=== PATIENT | female | born 1955 | race African-American/Black ===

== ENCOUNTER 2016-10-09 22:08 | Emergency (ER) | payer MEDICARE, OTHER ==
[~2016-10-09] VITALS: Ht 162.6 cm; Wt 70.0 kg
[~2016-10-09 22:08] MED LIST: AMLO5 PO; ARIC5TAB PO; BENZ1TAB PO; ENAL20TA81 PO; GABA300C3 PO; HALO5 PO; HYDR-3533 PO; HYDR50TA94 PO; OMEP20TA39 PO; PARO40TA PO; PRED20 PO; RISPERDAL IM; TRAZ300T2 PO; ZOCO40TA PO; ZOFR4TAB3 SL
[2016-10-09 22:09] VITALS: BP 152/84; PULSE 95; RESP 16; TEMP 98; O2SAT 96
[2016-10-09] MEDS ORDERED: SIMV40TA PO (22:48)
[2016-10-09] MEDS ORDERED: AMLO5TAB2 PO (22:48)
[2016-10-09] MEDS ORDERED: HALO5TAB PO (22:48)
[2016-10-09] MEDS ORDERED: HYDR-3533 PO (22:48)
[2016-10-09] MEDS ORDERED: PAXI40TA PO (22:48)
[2016-10-09] MEDS ORDERED: ARIC10TA PO (22:48)
[2016-10-09] MEDS ORDERED: GABA300C5 PO (22:48)
[2016-10-09] MEDS ORDERED: TRAZ300T2 PO (22:48)
[2016-10-09] MEDS ORDERED: VASO10TA8 PO (22:48)
[2016-10-09] MEDS ORDERED: KETOROLAC TROMETHAMINE 60 MG/2 ML (IM) VIAL IM ONE (23:30)
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
== END 2016-10-09 23:48 | disposition home or self-care (01) ==
LOC: NEPB 22:08
DX: M54.40 Lumbago with sciatica, unspecified side (principal); G89.29 Other chronic pain; I10 Essential (primary) hypertension; E11.9 Type 2 diabetes mellitus without complications; F17.210 Nicotine dependence, cigarettes, uncomplicated
CPT/HCPCS: 96372; 99283; J1885

== ENCOUNTER 2017-05-23 18:57 | Inpatient (IN) | payer MEDICARE, OTHER ==
[~2017-05-23 18:57] MED LIST changes: -AMLO5 PO; +AMLO5TAB2 PO; +ARIC10TA PO; -ARIC5TAB PO; -BENZ1TAB PO; -ENAL20TA81 PO; -GABA300C3 PO; +GABA300C5 PO; -HALO5 PO; +HALO5TAB PO; -HYDR50TA94 PO; -OMEP20TA39 PO; -PARO40TA PO; +PAXI40TA PO; -PRED20 PO; -RISPERDAL IM; +SIMV40TA PO; +VASO10TA8 PO; -ZOCO40TA PO; -ZOFR4TAB3 SL
[2017-05-23 18:58] VITALS: BP 153/84; PULSE 106; RESP 18; TEMP 98.7; O2SAT 96
[2017-05-23] MEDS ORDERED: PAXI30TA7 PO (19:24)
[2017-05-23] MEDS ORDERED: METF500T PO (19:24)
[2017-05-23] MEDS ORDERED: DONE10TA7 PO (19:24)
--- NOTE | 2017-05-23 19:29 | PD ---
HPI Chief Complaint: Fall Time Seen by Provider: 19:18 Travel History International Travel<30 days: No Contact w/Intl Traveler<30days: No Traveled to known affect area: No History of Present Illness HPI 62-year-old female presents emergency Department with complaint of left knee pain after tripping while walking out a door and falling directly on her left knee. She denies hitting her head or loss of consciousness. Anticoagulant therapy. Denies neck pain, back pain, chest pain, shortness of breath, abdominal pain, vomiting. Denies other extremity pain. Denies paresthesias, loss of sensation to the affected extremity. Says she cannot ambulate on the affected extremity at all. Has not taken any medication to try any treatments to alleviate her symptoms. Rates pain 10/10. Describes as throbbing. Pain is constant. PFSH Past Medical History Depression: Yes Cancer: No High Cholesterol: Yes COPD: Yes Coronary Artery Disease: Yes Diabetes: Yes Patient Takes Glucophage: Yes Diminished Hearing: No Glaucoma: No Hepatitis: No Hiatal Hernia: No Hypertension: Yes Medical other: Yes (ARTHRITIS) Musculoskeletal: Yes (RHUMATOID ARTHRITIS) Psychiatric: Yes Immunizations Current: No Thyroid Disease: No Influenza Vaccination: No ?: Not Menopausal: Yes Ectopic : Yes Past Surgical History Abdominal Surgery: No Cardiac Surgery: No Ear Surgery: No Endocrine Surgery: No Eye Surgery: No Genitourinary Surgery: No Gynecologic Surgery: Yes (TUBAL LIG.) Hysterectomy: Yes (PARTIAL) Oral Surgery: No Pacemaker: No Thoracic Surgery: No Other Surgery: Yes (IMPLANTED STIMULATOR) Social History Alcohol Use: Yes (QUIT DRINKING ) Tobacco Use: Yes (1/2 PPD) Substance Use: No Allergies-Medications (Allergen,Severity, Reaction): Coded Allergies: No Known Allergies (Verified , 05/23/17) Reported Meds & Prescriptions Reported Meds & Active Scripts Active Reported Metformin (Metformin HCl) 500 Mg Tab 500 Mg PO BIDPC Paxil (Paroxetine HCl) 30 Mg Tab 60 Mg PO DAILY Donepezil 10 Mg Tab 10 Mg PO HS Simvastatin 40 Mg Tab 40 Mg PO HS Trazodone (Trazodone HCl) 300 Mg Tab 300 Mg PO HS Paxil (Paroxetine HCl) 40 Mg Tab 60 Mg PO DAILY Lortab (Hydrocodone-Acetaminophen) 5-325 Mg Tab 1 Tab PO Q4H PRN Haloperidol 5 Mg Tab 5 Mg PO TID Gabapentin 300 Mg Cap 300 Mg PO BID Vasotec (Enalapril Maleate) 10 Mg Tab 10 Mg PO BID Amlodipine (Amlodipine Besylate) 5 Mg Tab 5 Mg PO DAILY Review of Systems Except as stated in HPI: all other systems reviewed are Neg Physical Exam Narrative GENERAL: Well-nourished, well-developed black female patient, in no acute distress; afebrile, nontoxic-appearing SKIN: Warm and dry. Left knee with abrasion noted; no open wound. HEAD: Atraumatic. Normocephalic. EYES: Pupils equal and round. No scleral icterus. No injection or drainage. ENT: Mucosa pink and moist. Airway patent. NECK: Moving freely. Trachea midline. CARDIOVASCULAR: Regular rate and rhythm. No murmur appreciated. RESPIRATORY: No accessory muscle use. Breath Sounds clear and equal bilaterally. No retractions or tachypnea. GASTROINTESTINAL: Abdomen soft, non-tender, nondistended. Positive bowel sounds. No hepato-splenomegaly, or palpable masses. No guarding. MUSCULOSKELETAL: Left knee edematous, nonerythematous, and without ecchymosis; obvious deformity/fracture noted to the patella; unable to assess range of motion; point tenderness to the patellar aspect. Left Lower extremity is supple and non-tense with 2+ pedal pulse and sensory intact and without erythema or edema. NEUROLOGICAL: Awake and alert. Oriented 3. No obvious cranial nerve deficits. Motor grossly within normal limits. Normal speech. PSYCHIATRIC: Appropriate mood and affect; insight and judgment normal. Data Data Last Documented VS Vital Signs Date Time Temp Pulse Resp B/P (MAP) Pulse Ox O2 Delivery O2 Flow Rate FiO2 05/23/17 18:58 98.7 106 18 153/84 (107) 96 Room Air Orders Orders Knee, Complete (4vws) (05/23/17 19:21) Acetamin-Hydrocod 325-5 Mg ([place] 5-325 (05/23/17 19:30) Ice/Cold Pack (05/23/17 19:22) Basic Metabolic Panel (Bmp) (05/23/17 19:29) Complete Blood Count With Diff (05/23/17 19:29) Prothrombin Time / Inr (Pt) (05/23/17 19:29) Act Partial Throm Time (Ptt) (05/23/17 19:29) Iv Access Insert/Monitor (05/23/17 19:29) Morphine Inj (Morphine Inj) (05/23/17 19:30) Sodium Chloride 0.9% Flush (Ns Flush) (05/23/17 19:30) Electrocardiogram (05/23/17 19:29) Chest, Single Ap (05/23/17 19:29) Morphine Inj (Morphine Inj) (05/23/17 19:45) Labs Laboratory Tests Test 05/23/17 19:50 MDM Medical Decision Making Medical Screen Exam Complete: Yes Emergency Medical Condition: Yes Medical Record Reviewed: Yes Differential Diagnosis Patella fracture, fall, abrasions Narrative Course 62-year-old female with obvious left patellar fracture from mechanical fall. Denies hitting her head or loss of consciousness. Denies neck pain or back pain. IV site obtained. Preoperative orders entered to include CBC, BMP, coags , chest x-ray, EKG. IV site obtained. Morphine ordered. 2100: Dr. Petersen assumed patient care at this time. See her note for final patient disposition. Rose Bates May 23, 2017 19:29
[2017-05-23] MEDS ORDERED: MORPHINE SULFATE 4 MG/ML INJ IV PUSH ONE ×2 (19:30→19:45)
[2017-05-23] MEDS ORDERED: ACETAMINOPHEN/HYDROcodone 325 MG/5 MG TAB PO ONE (19:30)
[2017-05-23] MEDS ORDERED: SODIUM CHLORIDE 0.9% FLUSH 10 ML FLUSH IV FLUSH PRN ×2 (19:30→22:15)
--- NOTE | 2017-05-23 19:59 | PD ---
Physical Exam Narrative I, Dr. Petersen, have reviewed the advance practice practitioner's documentation and am in agreement, met with the patient face to face, made the diagnosis, and the medical decision making was done by me. *My assessment and Findings: Patella fracture vs. dislocation vs. ligament injury 62yo F with PMH of HTN and DM here with left knee pain s/p slip and fell on wet concrete on left knee today. Pt denies any head trauma or LOC. Denies any focal weakness or numbness. No other complaints. Exam is notable for edema and patella appears to be in 2 different places, likely fractured. Very tender to palpation. Distal pulses intact. Sensation intact. There are some abrasions on the knee but no lacerations or any open wounds. Labs reviewed, no leukocytosis. BMP unremarkable. CXR was performed for preop purposes and is negative. Xray left knee showed fractured patella with 3-4cm between the 2 fragments. Left knee immobilized with knee immobilizer. Pt given morphine pain has improved. Consult placed for orthopedic surgeon Dr. Hernandez. Will admit to hospitalist service. Pt is not on any anticoagulations. Will place NPO after midline. Discussed with Dr. Marshall and accepted to her service. Data Data Last Documented VS Vital Signs Date Time Temp Pulse Resp B/P (MAP) Pulse Ox O2 Delivery O2 Flow Rate FiO2 05/23/17 18:58 98.7 106 18 153/84 (107) 96 Room Air Orders Orders Knee, Complete (4vws) (05/23/17 19:21) Acetamin-Hydrocod 325-5 Mg ([place] 5-325 (05/23/17 19:30) Ice/Cold Pack (05/23/17 19:22) Basic Metabolic Panel (Bmp) (05/23/17 19:29) Complete Blood Count With Diff (05/23/17 19:29) Prothrombin Time / Inr (Pt) (05/23/17 19:29) Act Partial Throm Time (Ptt) (05/23/17 19:29) Iv Access Insert/Monitor (05/23/17 19:29) Morphine Inj (Morphine Inj) (05/23/17 19:30) Sodium Chloride 0.9% Flush (Ns Flush) (05/23/17 19:30) Electrocardiogram (05/23/17 19:29) Chest, Single Ap (05/23/17 19:29) Morphine Inj (Morphine Inj) (05/23/17 19:45) Consult Orthopedic (05/23/17 ) Splint Or Brace Apply/Monitor (05/23/17 21:39) Npo After Midnight W/ Po Meds (05/24/17 Breakfast) Type And Screen (05/23/17 21:39) (Hub Use Only)Inp Phy Cons/Ref (05/23/17 ) Admit Order (Ed Use Only) (05/23/17 22:03) Labs Laboratory Tests Test 05/23/17 19:50 White Blood Count 6.7 TH/MM3 Red Blood Count 4.72 MIL/MM3 Hemoglobin 13.6 GM/DL Hematocrit 41.2 % Mean Corpuscular Volume 87.2 FL Mean Corpuscular Hemoglobin 28.8 PG Mean Corpuscular Hemoglobin Concent 33.0 % Red Cell Distribution Width 13.8 % Platelet Count 195 TH/MM3 Mean Platelet Volume 8.8 FL Neutrophils (%) (Auto) 45.1 % Lymphocytes (%) (Auto) 44.6 % Monocytes (%) (Auto) 7.6 % Eosinophils (%) (Auto) 2.3 % Basophils (%) (Auto) 0.4 % Neutrophils # (Auto) 3.0 TH/MM3 Lymphocytes # (Auto) 3.0 TH/MM3 Monocytes # (Auto) 0.5 TH/MM3 Eosinophils # (Auto) 0.2 TH/MM3 Basophils # (Auto) 0.0 TH/MM3 CBC Comment DIFF FINAL Differential Comment Prothrombin Time 10.6 SEC Prothromb Time International Ratio 1.0 RATIO Activated Partial Thromboplast Time 24.2 SEC Blood Urea Nitrogen 10 MG/DL Creatinine 0.73 MG/DL Random Glucose 141 MG/DL Calcium Level 8.4 MG/DL Sodium Level 138 MEQ/L Potassium Level 3.9 MEQ/L Chloride Level 103 MEQ/L Carbon Dioxide Level 27.3 MEQ/L Anion Gap 8 MEQ/L Estimat Glomerular Filtration Rate 98 ML/MIN [facility] Supervised Visit with DIOR: Yes Interpretation(s) EKG: NSR 98bpm. Normal axis. No ST segment elevation or depression. Diagnosis Primary Impression: Fractured patella Qualified Codes: S82.033A - Displaced transverse fracture of unspecified patella, initial encounter for closed fracture Admitting Information Admitting Physician Requests: Admit Janee Petersen DO May 23, 2017 19:59
[2017-05-23 20:59] LABS: BASOPHIL % 0.4 % (0.0-2.0); EOSINOPHIL # 0.2 TH/MM3 (0-0.4); EOSINOPHIL % 2.3 % (0.0-4.0); HEMATOCRIT 41.2 % (35.0-46.0); HEMO FLAGS DIFF FINAL; LYMPH % 44.6 % (9.0-44.0); MEAN CELL VOLUME 87.2 FL (80.0-100.0); MEAN CORPUSCULAR HEMOGLOBIN 28.8 PG (27.0-34.0); MONO % 7.6 % (0.0-8.0); NEUT % 45.1 % (16.0-70.0); PLATELET COUNT 195 TH/MM3 (150-450); RED BLOOD COUNT 4.72 MIL/MM3 (4.00-5.30); RED CELL DISTRIBUTION WIDTH 13.8 % (11.6-17.2); WHITE BLOOD COUNT 6.7 TH/MM3 (4.0-11.0)
[2017-05-23 21:20] LABS: BICARBONATE 27.3 MEQ/L (21.0-32.0); POTASSIUM 3.9 MEQ/L (3.5-5.1)
[2017-05-23 21:27] LABS: APTT (PATIENT) 24.2 SEC (24.3-30.1); PROTHROMBIN TIME - PATIENT 10.6 SEC (9.8-11.6)
--- NOTE | 2017-05-23 21:33 | RADRPT ---
EXAM DATE/TIME: 05/23/2017 19:52 [facility] COMPARISON: KNEE LEFT COMPLETE (4VWS), May 23, 2017, 19:57. INDICATIONS : Evaluate for pneumonia, pneumothorax, and communicable disease. Pre op patella surgery. MEDICAL HISTORY : None. SURGICAL HISTORY : None. ENCOUNTER: Initial ACUITY: 1 day PAIN SCORE: 0/10 LOCATION: Bilateral chest FINDINGS: A single view of the chest demonstrates the lungs to be symmetrically aerated without evidence of mas s, infiltrate or effusion. The cardiomediastinal contours are unremarkable. Osseous structures are intact. A spinal catheter ascending to the mid thoracic region CONCLUSION: No acute disease Luis Alberto Marrero MD on May 23, 2017 at 21:30 Board Certified Radiologist. This report was verified electronically.
--- NOTE | 2017-05-23 21:35 | RADRPT ---
EXAM DATE/TIME: 05/23/2017 19:57 [facility] COMPARISON: No previous studies available for comparison. INDICATIONS : Left knee pain after fall. MEDICAL HISTORY : None. SURGICAL HISTORY : None. ENCOUNTER: Initial ACUITY: 1 day PAIN SCORE: 10/10 LOCATION: Left knee. FINDINGS: The patella is split transversely in its midportion with about 3-4 cm separation of proximal and dist al fragments. There is intervening hematoma. Bony structures are otherwise intact and normally aligne d. CONCLUSION: Fractured patella with dominant proximal and distal fragments significantly distracted as above Luis Alberto Marrero MD on May 23, 2017 at 21:32 Board Certified Radiologist. This report was verified electronically.
[2017-05-23] MEDS: SODIUM CHLOR 0.9% 1000 ML INJ 1,000 ML IV SCH (22:10)
--- NOTE | 2017-05-23 22:12 | HHI.HP ---
[facility] Service [place] Hospitalists Primary Care Physician Case Gordon, Admission Diagnosis Left patella fracture Diagnoses: (1) Fall Diagnosis: Principal (2) Fractured patella Diagnosis: Principal (3) HTN (hypertension) Diagnosis: Principal (4) DM (diabetes mellitus) Diagnosis: Principal (5) COPD (chronic obstructive pulmonary disease) Diagnosis: Principal (6) Tobacco abuse Diagnosis: Principal Travel History International Travel<30 Days: No Contact w/Intl Traveler <30 Da: No Traveled to Known Affected Are: No History of Present Illness This is a 62-year-old female with a PMH of HTN, DM, COPD and Tobacco Abuse who was brought to the ER w/ complaints of left knee pain following fall. States she had mechanical trip and fall while walking out of the door, denies head trauma or LOC. Reports immediate complaints of left knee pain, unable to bare weight. On arrival, BP 3/84, HR 106, O2 sat 96% on RA, Afebrile. CBC unremarkable. Chemistry unremarkable. INR 1.0. CXR with no acute findings. Left Knee X-ray with fracture patella. Ortho consulted by ER physician. Review of Systems Except as stated in HPI: all other systems reviewed are Neg ROS: 14 point review of systems otherwise negative. Past Family Social History Past Medical History PMH: HTN, DM, COPD and Tobacco Abuse Past Surgical History PAST SURGICAL HISTORY: Tubal Ligation, Partial Hysterectomy, Implanted Stimulator Allergies: Coded Allergies: No Known Allergies (Verified , 05/23/17) Family History PAST FAMILY HISTORY: Reviewed. No h/o DM or CAD Social History PAST SOCIAL HISTORY: h/o alcohol, quit. +Tobacco. Negative for drugs Physical Exam Vital Signs Vital Signs Date Time Temp Pulse Resp B/P (MAP) Pulse Ox O2 Delivery O2 Flow Rate FiO2 05/23/17 18:58 98.7 106 18 153/84 (107) 96 Room Air Physical Exam PE: GENERAL: Middle-aged female in no acute distress. HEENT: PERRLA, EOMI. No scleral icterus or conjunctival pallor. No lid lag or facial droop. CARDIOVASCULAR: Regular rate and rhythm. No obvious murmurs to auscultation. No chest tenderness to palpation. RESPIRATORY: No obvious rhonchi or wheezing. Clear to auscultation. Breath sounds equal bilaterally. GASTROINTESTINAL: Abdomen soft, non-tender, nondistended. BS normal. MUSCULOSKELETAL: Extremities without clubbing, cyanosis, or edema. No obvious deformities. Decreased ROM of LLE due to injury. NEUROLOGICAL: Awake, alert and oriented x4. No focal neurologic deficits. Moving both upper and lower extremities spontaneously. Laboratory Laboratory Tests Test 05/23/17 19:50 White Blood Count 6.7 Red Blood Count 4.72 Hemoglobin 13.6 Hematocrit 41.2 Mean Corpuscular Volume 87.2 Mean Corpuscular Hemoglobin 28.8 Mean Corpuscular Hemoglobin Concent 33.0 Red Cell Distribution Width 13.8 Platelet Count 195 Mean Platelet Volume 8.8 Neutrophils (%) (Auto) 45.1 Lymphocytes (%) (Auto) 44.6 Monocytes (%) (Auto) 7.6 Eosinophils (%) (Auto) 2.3 Basophils (%) (Auto) 0.4 Neutrophils # (Auto) 3.0 Lymphocytes # (Auto) 3.0 Monocytes # (Auto) 0.5 Eosinophils # (Auto) 0.2 Basophils # (Auto) 0.0 CBC Comment DIFF FINAL Differential Comment Prothrombin Time 10.6 Prothromb Time International Ratio 1.0 Activated Partial Thromboplast Time 24.2 Blood Urea Nitrogen 10 Creatinine 0.73 Random Glucose 141 Calcium Level 8.4 Sodium Level 138 Potassium Level 3.9 Chloride Level 103 Carbon Dioxide Level 27.3 Anion Gap 8 Estimat Glomerular Filtration Rate 98 Result Diagram: 05/23/17194905/23/171949 Caprini VTE Risk Assessment Caprini VTE Risk Assessment: Mod/High Risk (score >= 2) Caprini Risk Assessment Model Point Value = 1 Point Value = 2 Point Value = 3 Point Value = 5 Age 41-60 Minor surgery BMI > 25 kg/m2 Swollen legs Varicose veins or History of unexplained or recurrent spontaneous Oral contraceptives or hormone replacement Sepsis (< 1 month) Serious lung disease, including pneumonia (< 1 month) Abnormal pulmonary function Acute myocardial infarction Congestive heart failure (< 1 month) History of inflammatory bowel disease Medical patient at bed rest Age 61-74 Arthroscopic surgery Major open surgery (> 45 min) Laparoscopic surgery (> 45 min) Malignancy Confined to bed (> 72 hours) Immobilizing plaster cast Central venous access Age >= 75 History of VTE Family history of VTE Factor V Leiden Prothrombin [id number] Lupus anticoagulant Anticardiolipin antibodies Elevated serum homocysteine Heparin-induced thrombocytopenia Other congenital or acquired thrombophilia Stroke (< 1 month) Elective arthroplasty Hip, pelvis, or leg fracture Acute spinal cord injury (< 1 month) Prophylaxis Regimen Total Risk Factor Score Risk Level Prophylaxis Regimen 0-1 Low Early ambulation 2 Moderate Order ONE of the following: *Sequential Compression Device (SCD) *Heparin 5000 units SQ BID 3-4 Higher Order ONE of the following medications: *Heparin 5000 units SQ TID *Enoxaparin/Lovenox 40 mg SQ daily (WT < 150 kg, CrCl > 30 mL/min) *Enoxaparin/Lovenox 30 mg SQ daily (WT < 150 kg, CrCl > 10-29 mL/min) *Enoxaparin/Lovenox 30 mg SQ BID (WT < 150 kg, CrCl > 30 mL/min) AND/OR *Sequential Compression Device (SCD) 5 or more Highest Order ONE of the following medications: *Heparin 5000 units SQ TID (Preferred with Epidurals) *Enoxaparin/Lovenox 40 mg SQ daily (WT < 150 kg, CrCl > 30 mL/min) *Enoxaparin/Lovenox 30 mg SQ daily (WT < 150 kg, CrCl > 10-29 mL/min) *Enoxaparin/Lovenox 30 mg SQ BID (WT < 150 kg, CrCl > 30 mL/min) AND *Sequential Compression Device (SCD) Assessment and Plan Problem List: (1) Fall ICD Code: W19.XXXA - Unspecified fall, initial encounter (2) Fractured patella ICD Code: S82.009A - Unspecified fracture of unspecified patella, initial encounter for closed fracture Status: Acute (3) HTN (hypertension) ICD Code: I10 - Essential (primary) hypertension (4) COPD (chronic obstructive pulmonary disease) ICD Code: J44.9 - Chronic obstructive pulmonary disease, unspecified (5) Tobacco abuse ICD Code: Z72.0 - Tobacco use (6) DM (diabetes mellitus) ICD Code: E11.9 - Type 2 diabetes mellitus without complications Assessment and Plan A/P: 1. Fall: s/p mechanical trip and fall, denies head trauma or LOC, no other injuries reported. 2. Left Knee Fx: c/o left knee pain after fall, X-ray w/ fracture patella with dominant proximal distal fragments significantly distracted, images reviewed by me. Ortho consulted by ER physician, plan is for surgical intervention. NPO, IVF, analgesics/antiemetics. Pre-op labs unremarkable. 3. HTN: BP 150's on arrival, resume home medications, monitor BP. 4. COPD: Chronic Respiratory Failure. Stable. DuoNeb prn. CXR w/ no acute findings, images reviewed by me. 5. Tobacco Abuse: Pt counselled. NicoDerm prn if needed. 6. DVT Prophylaxis: Anticoagulation post op 7. Social work for d/c planning as needed. 8. Case discussed w/ ER physician at length. Physician Certification 2 Midnight Certification Type: Admission for Inpatient Services Order for Inpatient Services The services are ordered in accordance with Medicare regulations or non- Medicare payer requirements, as applicable. In the case of services not specified as inpatient-only, they are appropriately provided as inpatient services in accordance with the 2-midnight benchmark. Estimated LOS (days): 2 days is the estimated time the patient will need to remain in the hospital, assuming treatment plan goals are met and no additional complications. Post-Hospital Plan: Not yet determined Problem Qualifiers (1) Fractured patella: Qualified Codes: S82.033A - Displaced transverse fracture of unspecified patella, initial encounter for closed fracture Reyna Marshall MD May 23, 2017 22:12
[2017-05-23] MEDS ORDERED: DEXTROSE 50% IN WATER 50 ML VIAL(D50) IV PUSH PRN (22:15)
[2017-05-23] MEDS ORDERED: BISACODYL 10 MG SUPP RECTAL PRN (22:15)
[2017-05-23] MEDS ORDERED: GLUCAGON 1 MG/ML VIAL OTHER PRN (22:15)
[2017-05-23] MEDS ORDERED: SENNOSIDES 8.6 MG TAB PO PRN (22:15)
[2017-05-23] MEDS ORDERED: ACETAMINOPHEN 325 MG TAB PO PRN (22:15)
[2017-05-23] MEDS ORDERED: MORPHINE SULFATE 2 MG/ML INJ IV PUSH PRN (22:15)
[2017-05-23] MEDS ORDERED: MAGNESIUM HYDROXIDE SUSP 30 ML CUP PO PRN (22:15)
[2017-05-23] MEDS ORDERED: LACTULOSE SYRUP 20 GM/30 ML CUP PO PRN (22:15)
[2017-05-23] MEDS ORDERED: ONDANSETRON HCL 4 MG/2 ML VIAL IVP PRN (22:15)
[2017-05-23] MEDS ORDERED: RESP: ALBUTEROL 2.5 MG/IPRATROPIUM 0.5 MG NEB (PRN) NEB (22:45)
[2017-05-23] MEDS: ACETAMINOPHEN/HYDROcodone 325 MG/5 MG TAB PO PRN (23:05)
[2017-05-23] MEDS ORDERED: METOPROLOL TARTRATE 25 MG TAB PO PRN (23:15)
[2017-05-23] MEDS ORDERED: LACTATED RINGER'S 1000 ML IV PRN (23:15)
[2017-05-23] MEDS ORDERED: POVIDONE IODINE 5% (ANTISEPSIS KIT) 4 APPLICATIONS EACH NARE PRN (23:15)
[2017-05-23] MEDS ORDERED: INSULIN HUMAN REGULAR 1,000 UNITS/10 ML VIAL SQ PRN (23:15)
[2017-05-23] MEDS ORDERED: CHLORHEXIDINE GLUCONATE 2 % 1 PACK (2 CLOTHS) TOPICAL PRN (23:15)
[2017-05-23] MEDS ORDERED: SODIUM CHLORID 0.9% 500 ML IV PRN (23:15)
[2017-05-24 00:10] VITALS: BP 158/83; PULSE 87; RESP 17; TEMP 98.1; O2SAT 96
[2017-05-24] MEDS: MORPHINE SULFATE 4 MG/ML INJ IV PUSH PRN ×2 (00:51→05:39)
[2017-05-24] MEDS: ACETAMINOPHEN/HYDROcodone 325 MG/5 MG TAB PO PRN (03:21)
[2017-05-24 03:27] LABS: AUTOMATED NEUTROPHIL # 4.9 TH/MM3 (1.8-7.7); BASOPHIL # 0.1 TH/MM3 (0-0.2); BASOPHIL % 0.6 % (0.0-2.0); EOSINOPHIL # 0.1 TH/MM3 (0-0.4); EOSINOPHIL % 1.2 % (0.0-4.0); HEMATOCRIT 37.8 % (35.0-46.0); HEMO FLAGS DIFF FINAL; LYMPH % 35.5 % (9.0-44.0); LYMPHOCYTE # 3.1 TH/MM3 (1.0-4.8); MEAN CELL VOLUME 87.7 FL (80.0-100.0); NEUT % 55.7 % (16.0-70.0); PLATELET COUNT 191 TH/MM3 (150-450); RED BLOOD COUNT 4.31 MIL/MM3 (4.00-5.30); WHITE BLOOD COUNT 8.8 TH/MM3 (4.0-11.0)
[2017-05-24 03:40] LABS: ALT (GPT) 27 U/L (10-53); ANION GAP 6 MEQ/L (5-15); AST (GOT) 14 U/L (15-37); BICARBONATE 29.4 MEQ/L (21.0-32.0); BLOOD UREA NITROGEN 11 MG/DL (7-18); CHLORIDE 108 MEQ/L (98-107); GLOMERULAR FILTRATION RATE 118 ML/MIN (>89); POTASSIUM 4.2 MEQ/L (3.5-5.1); SODIUM (NA) 143 MEQ/L (136-145)
[2017-05-24 03:42] LABS: ALKALINE PHOSPHATASE 73 U/L (45-117); TOTAL BILIRUBIN ADULT 0.5 MG/DL (0.2-1.0)
[2017-05-24 04:10] VITALS: BP 154/84; PULSE 83; RESP 17; TEMP 98.5; O2SAT 96
--- NOTE | 2017-05-24 06:42 | PD.ORT.PN ---
Subjective Subjective Remarks Patient examined after fall yesterday and got mother's house. Slipped on wet concrete and landed on left side and states that she heard a "pop". She was unable to ambulate and had significant pain in her knee. She has a history of diabetes and smokes a pack of cigarettes a day Objective Vitals Vital Signs Date Time Temp Pulse Resp B/P (MAP) Pulse Ox O2 Delivery O2 Flow Rate FiO2 05/24/17 04:10 98.5 83 17 154/84 (107) 96 05/24/17 00:10 98.1 87 17 158/83 (108) 96 05/23/17 22:52 05/23/17 18:58 98.7 106 18 153/84 (107) 96 Room Air I/O 05/23/17 05/23/17 05/23/17 05/24/17 05/24/17 05/24/17 07:00 15:00 23:00 07:00 15:00 23:00 Intake Total 574 ml Balance 574 ml Intake IV Total 574 ml Result Diagram: 05/24/1730905/24/17309 Other Results Laboratory Tests Test 05/23/17 19:50 Prothromb Time International Ratio 1.0 RATIO Prothrombin Time 10.6 SEC (9.8-11.6) Imaging Last 24 hours Impressions Chest X-Ray 05/23/171928 Signed Impressions: Service Date/Time: Tuesday, May 23, 2017 19:52 - CONCLUSION: No acute disease Luis Alberto Marrero MD Knee X-Ray 05/23/171920 Signed Impressions: Service Date/Time: Tuesday, May 23, 2017 19:57 - CONCLUSION: Fractured patella with dominant proximal and distal fragments significantly distracted as above Luis Alberto Marrero MD Objective Remarks Lower upper extremities: Full range of motion neurovascular intact Right lower extremity: Full range of motion and neurovascularly intact Left lower extremity: No pain to palpation of hip or ankle. Distally intact sensation with good capillary refills. Active dorsiflexion and plantar flexion of the foot. Examination of the knee shows a small abrasion inferior to the patella. There is a palpable deformity of patella. Significant pain and swelling. Assessment & Plan Assessment and Plan Left patella fracture Surgery this morning due to displacement. Risks of surgery were discussed and comorbidities of diabetes and smoking are also discussed. Sign consents Nothing by mouth Lan Blackwell Jr. May 24, 2017 06:42
[2017-05-24] MEDS: INSULIN ASPART SUPPLEMENTAL SCALE SQ SCH ×4 (07:30→20:42)
[2017-05-24 07:43] VITALS: BP 127/88; PULSE 77; RESP 17; TEMP 98.1; O2SAT 94
--- NOTE | 2017-05-24 08:01 | MB ---
cc: JOMAR SANTOS DATE OF ADMISSION 05/23/2017 DATE OF CONSULTATION 05/24/2017 REASON FOR CONSULTATION Left patella fracture. HISTORY Hannah is a 62-year-old female who has a history of hypertension, diabetes, COPD and tobacco use. She was at a friend's house when she lost her balance and fell. She landed directly on her left knee. She hit directly on concrete. She had immediate left knee pain. She was unable to stand or ambulate. She presented to the emergency room where she was found have a displaced left patella fracture. She is currently awake and alert on the orthopedic floor. Her only complaint is her left knee. The pain is worse with movement and is improved with rest. She denies any dizziness, syncope or loss of consciousness. PAST MEDICAL HISTORY ILLNESSES 1. Hypertension. 2. Diabetes. 3. COPD. 4. Tobacco abuse. SURGERIES 1. Tubal ligation. 2. Hysterectomy. 3. Stimulator placement. ALLERGIES No known drug allergies. MEDICATIONS Please see EMR for complete list of inpatient medications. This was reviewed. FAMILY HISTORY Noncontributory. SOCIAL HISTORY The patient denies alcohol or drug use. She does smoke cigarettes. REVIEW OF SYSTEMS The patient denies headache, visual changes, neck pain, chest pain, shortness of breath, abdominal pain, nausea, vomiting or recent weight loss or numbness or tingling of extremities. She complains of left knee pain. The pain is worse with movement. PHYSICAL EXAMINATION GENERAL: The patient is a pleasant 62-year-old female in no acute distress. She is awake and alert. She is alert and oriented x3. She appears well-developed, well-nourished. VITAL SIGNS: Temperature 98.5, pulse 83, respirations 17, blood pressure 154/84, O2 sat 96% on room air. HEAD: The patient is normocephalic. Pupils are equal. NECK: Soft, nontender. Trachea is midline. ABDOMEN: Soft, nontender, nondistended. EXTREMITIES: Examination of the bilateral upper extremities reveals no pain with shoulder, elbow or wrist motion. She has intact sensation in all fingers. She has good capillary refill in all fingers. Skin is intact in both hands. Plate Cleaner strength +5. Examination of the right leg reveals no pain with hip, knee or ankle motion. Skin is intact. Sensation is intact. Right foot dorsalis pedis pulse is palpable. Examination of the left leg reveals no tenderness around the hip or ankle. She has moderate swelling around the knee. She has palpable defect along the patella. She has pain with any knee motion. Skin is intact. She has intact sensation in the left foot. Dorsalis pedis pulse is palpable. X-RAYS X-rays of left knee reveal a displaced left patella fracture. IMPRESSION 1. Displaced left patella fracture. 2. Diabetes. 3. Tobacco dependence. PLAN The treatment options were discussed with the patient. At this point I would recommend open reduction, internal fixation of left patella. The risks of surgery include bleeding, infection, injury to arteries, nerves and blood vessels, nonunion, malunion, infection, wound complications, painful hardware, knee stiffness, loss of motion, arthritis as well as medical complications including blood clot, stroke, heart attack and . I had a lengthy discussion with the patient regarding the need to stop smoking to decrease the risk of infection as well as increase the possibility of fracture healing. The patient expressed understanding of this. All questions were answered. I will plan on surgery today. A mid-level provider in my office, nurse practitioner or PA, may see this patient on a follow-up basis and continue to implement the objective of this plan including: Starting or adjusting medications, injections of muscle, tendon, bursa or joints, cast application, orthotic or brace application, physical therapy, further radiographic studies including x-ray, MRI, CT, ultrasounds or bone scan, vascular studies, neurologic studies, or other specialist consultations, and proceeding with surgical management as appropriate. MD HEIDI Noonan/TRELL /6:57 AM /7:46 AM
[2017-05-24] MEDS ORDERED: ACETAMINOPHEN 1000 MG/100 ML 100 ML IV ONE (08:16)
[2017-05-24] MEDS ORDERED: GENTAMICIN SULFATE 80 MG/2 ML VIAL ONE (08:26)
[2017-05-24] MEDS ORDERED: VANCOMYCIN HCL 1000 MG VIAL ONE (08:26)
[2017-05-24] MEDS ORDERED: SODIUM CHLOR 0.9% 250 ML INJ 250 ML ONE (08:26)
[2017-05-24] MEDS ORDERED: ceFAZolin 2 GM PREMIX 50 ML ONE (08:34)
[2017-05-24] MEDS: HALOPERIDOL 5 MG TAB PO SCH ×4 (09:00→17:17)
[2017-05-24] MEDS ORDERED: diphenhydrAMINE HCL 25 MG CAP PO PRN (09:45)
[2017-05-24] MEDS ORDERED: MORPHINE SULFATE 4 MG/ML INJ IV PUSH PRN (09:45)
[2017-05-24] MEDS ORDERED: SODIUM CHLORIDE 0.9% FLUSH 5 ML FLUSH IVF PRN (09:45)
[2017-05-24] MEDS ORDERED: Post-op Orders (for Pharmacy) MISC XX ONE (09:45)
--- NOTE | 2017-05-24 09:47 | PD.OP ---
cc: Bonifacio Linton MD Operative Report Date of Surgery: May 24, 2017 Preoperative Diagnosis: Left patellar fracture Postoperative Diagnosis: Same Procedure: ORIF left patella Anesthesia: Gen. Surgeon: Bonifacio Linton Kennel Operator(s): ALMAZ Up PA-C The surgical procedure was assisted by my physician community program assistant. My P.A. presence was necessary throughout this case for the manipulation and positioning of the surgical extremity. My P.A. was assisting me throughout the duration of this procedure. The skill set of a physician community program assistant was medically necessary to complete this procedure. During the surgical case the copier field service technician was working at the back table and the physician community program assistant was directly assisting me. Operation and Findings: This patient had a fall resulting in displaced left patella fracture. Informed consent was confirmed preoperatively and informed consent was obtained. I had a detailed discussion with the patient regarding the risks and benefits of surgery. Patient was brought to the operating room and placed on the OR table. IV sedation and GETA were administered by anesthesiologist and IV antibiotics were given prior to incision. A timeout procedure was performed. The operative leg was prepped with alcohol followed by Hibiclens and draped in the usual sterile fashion. The procedure began with a 4-inch incision over the anterior knee. Subcutaneous tissue was dissected with Bovie. At this point the fracture site was visualized. Fracture was now cleaned with curettes. At this point attention was turned to reduction. The inferior pole of the patella was reduced to the superior pole of the patella. Fracture keyed into anatomic alignment. Multiplanar fluoroscopy confirmed excellent alignment of fracture. 3 guide pins for the Synthes 4.0 cannulated screws were now placed from inferior to superior. Fluoroscopy was used to confirm appropriate guidepin placement. Screw lengths were measured. Cannulated drill was now placed over the guide pins. Appropriate length screws were now placed, good compression was applied. An 18 gauge wire was now passed through the cannulated screws in a [id number] fashion. A tension band type construct was now created. The wires were tensioned appropriately. Fluoroscopy confirmed well-placed hardware with well-aligned fracture. The retinaculum was now closed with #1 Vicryl, subcutaneous tissue was closed with 3-0 Vicryl and skin was closed with sarah. Sterile dressings were applied. The patient was transferred to recovery in stable condition. She was placed into a knee immobilizer. Bonifacio Linton MD May 24, 2017 09:46
[2017-05-24] MEDS ORDERED: DO NOT ADM ANY ANTICOAGULANT DRUGS PRN (09:53)
[2017-05-24] MEDS ORDERED: *morphine SULFATE 8 MG/ML PERIprocedure ONLY ONE ×2 (10:00→10:09)
[2017-05-24] MEDS: LACTATED RINGER'S 1000 ML INJ 1,000 ML IV SCH (10:15)
--- NOTE | 2017-05-24 10:26 | HHI.PR ---
Subjective Remarks Seen after she returned from surgery. Says she has some pain at the surgical site she did receive morphine and is sleepy. No fever or chills. No n/v/d/c. Denies sob, n/v/d/c. Objective Vitals Vital Signs Date Time Temp Pulse Resp B/P (MAP) Pulse Ox O2 Delivery O2 Flow Rate FiO2 05/24/17 07:43 98.1 77 17 127/88 (101) 94 05/24/17 04:10 98.5 83 17 154/84 (107) 96 05/24/17 00:10 98.1 87 17 158/83 (108) 96 05/23/17 22:52 05/23/17 18:58 98.7 106 18 153/84 (107) 96 Room Air I/O 05/23/17 05/23/17 05/23/17 05/24/17 05/24/17 05/24/17 07:00 15:00 23:00 07:00 15:00 23:00 Intake Total 574 ml 1300 ml Output Total 50 ml Balance 574 ml 1250 ml Intake Oral 0 ml IV Total 574 ml Other 1300 ml Output Estimated Blood Loss 50 ml # Voids 2 # Bowel Movements 0 Result Diagram: 05/24/1730905/24/17309 Imaging Last Impressions Chest X-Ray 05/23/171928 Signed Impressions: Service Date/Time: Tuesday, May 23, 2017 19:52 - CONCLUSION: No acute disease Luis Alberto Marrero MD Knee X-Ray 05/23/171920 Signed Impressions: Service Date/Time: Tuesday, May 23, 2017 19:57 - CONCLUSION: Fractured patella with dominant proximal and distal fragments significantly distracted as above Luis Alberto Marrero MD Objective Remarks GENERAL: Middle-aged female in no acute distress. CARDIOVASCULAR: Regular rate and rhythm. No obvious murmurs to auscultation. No chest tenderness to palpation. RESPIRATORY: No obvious rhonchi or wheezing. Clear to auscultation. Breath sounds equal bilaterally. GASTROINTESTINAL: Abdomen soft, non-tender, nondistended. BS normal. MUSCULOSKELETAL: Extremities without clubbing, cyanosis, or edema. No obvious deformities. Decreased ROM of LLE due to injury. NEUROLOGICAL: Awake, alert and oriented x4. No focal neurologic deficits. Moving both upper and lower extremities spontaneously. Procedures Left patellar fracture s/p ORIF left patella by Dr Lorin jacob on 05/24/17 A/P Problem List: (1) Fall ICD Code: W19.XXXA - Unspecified fall, initial encounter (2) Fractured patella ICD Code: S82.009A - Unspecified fracture of unspecified patella, initial encounter for closed fracture Status: Acute (3) HTN (hypertension) ICD Code: I10 - Essential (primary) hypertension (4) COPD (chronic obstructive pulmonary disease) ICD Code: J44.9 - Chronic obstructive pulmonary disease, unspecified (5) Tobacco abuse ICD Code: Z72.0 - Tobacco use (6) DM (diabetes mellitus) ICD Code: E11.9 - Type 2 diabetes mellitus without complications Assessment and Plan Fall: s/p mechanical trip and fall, denies head trauma or LOC, no other injuries reported. Left Knee Fx: c/o left knee pain after fall, X-ray w/ fracture patella with dominant proximal distal fragments significantly distracted, images reviewed. Left patellar fracture s/p ORIF left patella by Dr Lorin jacob on 05/24/17 Ortho consulted by ER physician, s/p surgical intervention. HTN: BP 150's on arrival, resume home medications, monitor BP. PRN antihypertensive meds. COPD: Chronic Respiratory Failure. Stable. DuoNeb prn. CXR w/ no acute findings, images reviewed by me. Tobacco Abuse: Pt counselled. NicoDerm prn if needed. DVT Prophylaxis: Anticoagulation post op CM for d/c planning as needed. Discussed with the patient, nurse Problem Qualifiers (1) Fractured patella: Qualified Codes: S82.033A - Displaced transverse fracture of unspecified patella, initial encounter for closed fracture Parvin Bowie MD May 24, 2017 10:26
[2017-05-24] MEDS: ACETAMINOPHEN/HYDROcodone 325 MG/7.5 MG TAB PO PRN ×2 (11:27→15:52)
[2017-05-24] MEDS: GABAPENTIN 300 MG CAP PO SCH ×2 (11:28→20:41)
[2017-05-24] MEDS: DOCUSATE SODIUM 50 MG/SENNA 8.6 MG TAB PO SCH ×2 (11:28→20:41)
[2017-05-24] MEDS: amLODIPine BESYLATE 5 MG TAB PO SCH (11:28)
[2017-05-24] MEDS: ENALAPRIL MALEATE 10 MG TAB PO SCH ×2 (11:28→20:41)
[2017-05-24] MEDS: PARoxetine HCL 20 MG TAB PO SCH (11:30)
[2017-05-24] MEDS: SODIUM CHLORIDE 0.9% FLUSH 10 ML FLUSH IV FLUSH SCH ×2 (11:31→20:42)
[2017-05-24 11:46] VITALS: BP 163/86; PULSE 84; RESP 17; TEMP 96; O2SAT 97
[2017-05-24] MEDS: CALCIUM/VITAMIN D 250 MG/125 U TAB PO SCH ×2 (12:07→17:17)
[2017-05-24 12:09] VITALS: O2SAT 98
--- NOTE | 2017-05-24 12:42 | RADRPT ---
EXAM DATE/TIME: 05/24/2017 09:29 [facility] COMPARISON: No previous studies available for comparison. INDICATIONS : Orif left patella. MEDICAL HISTORY : Fractured patella SURGICAL HISTORY : None. ENCOUNTER: Subsequent ACUITY: 2 days PAIN SCORE: Non-responsive. LOCATION: Left Knee. FINDINGS: Status post internal fixation of a fracture at the patella. There is good position and alignment of t he fracture fragments. Hardware is grossly intact. CONCLUSION: Good position and alignment on this postoperative study. Omar Beasley MD on May 24, 2017 at 12:41 Board Certified Radiologist. This report was verified electronically.
[2017-05-24] MEDS: ceFAZolin 2 GM PREMIX 50 ML IV SCH (17:17)
--- NOTE | 2017-05-24 17:21 | EKG ---
Date Performed: 05/23/2017 Time Performed: 19:50:03 PTAGE: 62 years EKG: Sinus rhythm NORMAL ECG SINCE PRIOR TRACING THE MINIMAL NONSPECIFIC T WAVE CHANGES HAVE RESOLVED. PREVIOUS TRACING : 02/11/2008 13.33 DOCTOR: Rosa Olmedo Interpretating Date/Time 05/24/2017 17:20:02
[2017-05-24] MEDS: SODIUM CHLOR 0.9% 1000 ML INJ 1,000 ML IV SCH (18:10)
[2017-05-24] MEDS: traZODone HCL 100 MG TAB PO SCH (20:41)
[2017-05-24] MEDS: DONEPEZIL HCL 5 MG TAB PO SCH (20:41)
[2017-05-24] MEDS: PRAVASTATIN SOD 40 MG TAB PO SCH (20:41)
[2017-05-24 20:45] VITALS: BP 123/70; PULSE 95; RESP 18; TEMP 97.9; O2SAT 96
[2017-05-24] MEDS ORDERED: SODIUM CHLORIDE 0.9% FLUSH 5 ML FLUSH IVF SCH (21:00)
[2017-05-25] VITALS (9 sets, daily range): BP systolic 103–145; BP diastolic 59–78; PULSE 89–107; RESP 17–19; TEMP 97.5–99.2; O2SAT 91–100
[2017-05-25] MEDS: ceFAZolin 2 GM PREMIX 50 ML IV SCH ×2 (00:35→08:38)
[2017-05-25] MEDS: ACETAMINOPHEN/HYDROcodone 325 MG/7.5 MG TAB PO PRN ×3 (03:41→18:20)
--- NOTE | 2017-05-25 06:44 | PD.ORT.PN ---
Subjective Subjective Remarks POD 1 s/p ORIF left patella doing well. reports pain last night but currently resting comfortably Objective Vitals Vital Signs Date Time Temp Pulse Resp B/P (MAP) Pulse Ox O2 Delivery O2 Flow Rate FiO2 05/25/17 03:35 99.2 100 17 145/77 (99) 96 05/25/17 00:05 98.6 94 18 113/59 (77) 100 05/24/17 21:29 Nasal Cannula 2.00 05/24/17 20:45 97.9 95 18 123/70 (87) 96 05/24/17 12:09 98 Nasal Cannula 2.00 05/24/17 11:46 96.0 84 17 163/86 (111) 97 05/24/17 10:50 85 16 154/73 (100) 98 Nasal Cannula 2 05/24/17 10:30 83 16 165/78 (107) 97 Nasal Cannula 2 05/24/17 10:25 16 05/24/17 10:15 84 16 162/75 (104) 96 Nasal Cannula 2 05/24/17 10:05 16 05/24/17 09:56 98.1 85 16 143/73 (96) 97 Nasal Cannula 4 05/24/17 07:43 98.1 77 17 127/88 (101) 94 I/O 05/24/17 05/24/17 05/24/17 05/25/17 05/25/17 05/25/17 07:00 15:00 23:00 07:00 15:00 23:00 Intake Total 574 ml 1934 ml 240 ml Output Total 50 ml Balance 574 ml 1884 ml 240 ml Intake Oral 0 ml 480 ml 240 ml IV Total 574 ml 154 ml Other 1300 ml Output Estimated Blood Loss 50 ml # Voids 2 2 1 # Bowel Movements 0 0 0 Result Diagram: 05/24/1730905/24/17309 Imaging Last 24 hours Impressions Chest X-Ray 05/23/171928 Signed Impressions: Service Date/Time: Tuesday, May 23, 2017 19:52 - CONCLUSION: No acute disease Luis Alberto Marrero MD Knee X-Ray 05/23/171920 Signed Impressions: Service Date/Time: Tuesday, May 23, 2017 19:57 - CONCLUSION: Fractured patella with dominant proximal and distal fragments significantly distracted as above Luis Alberto Marrero MD Objective Remarks LLE: dressings clean and dry. intact. NVI. +knee brace Assessment & Plan Assessment and Plan 1) Left Patella Fx s/p ORIF - POD 1 -PWB up to 50lbs with knee brace on -knee brace at all times -no quad sets, leg lifts, strengthening, or motion of knee -daily dressing changes -CM for HHC -patient states feels good and using walker well. reports has help at home. plan for home with HHC today or tomorrow -f/u with Lorin or [facility] in 2 weeks Earl Madison May 25, 2017 06:44
--- NOTE | 2017-05-25 06:47 | HHI.FF ---
Face to Face Verification Diagnosis: (1) Fractured patella Physical Therapy Gait training Knee: Knee fracture, Protocol: Left Canvas Knee Splint: At all times Left LE Weight Bearing: Partial WB 50% (up to 50 lbs), No Strengthening, No Quad Sets Left LE Range of Motion: No ROM Nursing Dressing Changes: Daily dressing change, Michael wrap, 4x4s, Xeroform I have seen patient Hannah Leung on 05/25/17. My clinical findings support the need for the requested home health care services because: Ltd mobility - disease progression I certify that my clinical findings support that this patient is homebound because: Post-op weakness Earl Madison May 25, 2017 06:47
[2017-05-25] MEDS ORDERED: HYDR-3580 PO (06:48)
[2017-05-25] MEDS ORDERED: WALKER/ADULT/FO1 MIS (06:48)
[2017-05-25 07:14] LABS: HEMATOCRIT 36.6 % (35.0-46.0); REVIEW FLAG FINAL
[2017-05-25] MEDS: INSULIN ASPART SUPPLEMENTAL SCALE SQ SCH ×4 (08:00→21:00)
--- NOTE | 2017-05-25 08:30 | HHI.PR ---
Subjective Remarks In bed, says has been in the chair and is looking forward to do more PT. No fever or chills. No n/v/d/. Did not have a MM, did not eat much says she doesn' t like the food, appetite is good. Objective Vitals Vital Signs Date Time Temp Pulse Resp B/P (MAP) Pulse Ox O2 Delivery O2 Flow Rate FiO2 05/25/17 07:43 99.0 95 19 112/67 (82) 91 05/25/17 03:35 99.2 100 17 145/77 (99) 96 05/25/17 00:05 98.6 94 18 113/59 (77) 100 05/24/17 21:29 Nasal Cannula 2.00 05/24/17 20:45 97.9 95 18 123/70 (87) 96 05/24/17 12:09 98 Nasal Cannula 2.00 05/24/17 11:46 96.0 84 17 163/86 (111) 97 05/24/17 10:50 85 16 154/73 (100) 98 Nasal Cannula 2 05/24/17 10:30 83 16 165/78 (107) 97 Nasal Cannula 2 05/24/17 10:25 16 05/24/17 10:15 84 16 162/75 (104) 96 Nasal Cannula 2 05/24/17 10:05 16 05/24/17 09:56 98.1 85 16 143/73 (96) 97 Nasal Cannula 4 I/O 05/24/17 05/24/17 05/24/17 05/25/17 05/25/17 05/25/17 07:00 15:00 23:00 07:00 15:00 23:00 Intake Total 574 ml 1934 ml 240 ml 240 ml Output Total 50 ml Balance 574 ml 1884 ml 240 ml 240 ml Intake Oral 0 ml 480 ml 240 ml 240 ml IV Total 574 ml 154 ml Other 1300 ml Output Estimated Blood Loss 50 ml # Voids 2 2 1 2 # Bowel Movements 0 0 0 0 Result Diagram: 05/25/17 0633 05/24/17 0310 Imaging Last Impressions Knee X-Ray 05/24/17 0000 Signed Impressions: Service Date/Time: April 09:29 - CONCLUSION: Good position and alignment on this postoperative study. Omar Beasley MD Chest X-Ray 05/23/171928 Signed Impressions: Service Date/Time: Tuesday, May 23, 2017 19:52 - CONCLUSION: No acute disease Luis Alberto Marrero MD Objective Remarks GENERAL: Middle-aged female in no acute distress. CARDIOVASCULAR: Regular rate and rhythm. No obvious murmurs to auscultation. No chest tenderness to palpation. RESPIRATORY: No obvious rhonchi or wheezing. Clear to auscultation. Breath sounds equal bilaterally. GASTROINTESTINAL: Abdomen soft, non-tender, nondistended. BS normal. MUSCULOSKELETAL: Extremities without clubbing, cyanosis, or edema. No obvious deformities. Decreased ROM of LLE due to injury, s/p surgery. NEUROLOGICAL: Awake, alert and oriented x4. No focal neurologic deficits. Moving both upper and lower extremities spontaneously. Procedures Left patellar fracture s/p ORIF left patella by Dr Lorin jacob on 05/24/17 A/P Problem List: (1) Fall ICD Code: W19.XXXA - Unspecified fall, initial encounter (2) Fractured patella ICD Code: S82.009A - Unspecified fracture of unspecified patella, initial encounter for closed fracture Status: Acute (3) HTN (hypertension) ICD Code: I10 - Essential (primary) hypertension (4) COPD (chronic obstructive pulmonary disease) ICD Code: J44.9 - Chronic obstructive pulmonary disease, unspecified (5) Tobacco abuse ICD Code: Z72.0 - Tobacco use (6) DM (diabetes mellitus) ICD Code: E11.9 - Type 2 diabetes mellitus without complications Assessment and Plan Fall: s/p mechanical trip and fall, denies head trauma or LOC, no other injuries reported. Left patellar fracture s/p ORIF left patella by Dr Lorin jacob on 05/24/17 X-ray w/ fracture patella with dominant proximal distal fragments significantly distracted, images reviewed. Ortho consulted by ER physician, s/p surgical intervention. Continue management per ortho HTN: BP 150's on arrival, resume home medications, monitor BP. PRN antihypertensive meds. COPD: Chronic Respiratory Failure. Stable. DuoNeb prn. CXR w/ no acute findings, images reviewed by me. Tobacco Abuse: Pt counselled. NicoDerm prn if needed. DVT Prophylaxis: Anticoagulation post op CM for d/c planning as needed. Discussed with the patient, nurse Problem Qualifiers (1) Fractured patella: Qualified Codes: S82.033A - Displaced transverse fracture of unspecified patella, initial encounter for closed fracture Parvin Bowie MD May 25, 2017 08:30
[2017-05-25] MEDS: GABAPENTIN 300 MG CAP PO SCH ×2 (08:36→22:02)
[2017-05-25] MEDS: amLODIPine BESYLATE 5 MG TAB PO SCH (08:36)
[2017-05-25] MEDS: ENALAPRIL MALEATE 10 MG TAB PO SCH ×2 (08:36→22:02)
[2017-05-25] MEDS: HALOPERIDOL 5 MG TAB PO SCH ×3 (08:36→18:20)
[2017-05-25] MEDS: CALCIUM/VITAMIN D 250 MG/125 U TAB PO SCH ×3 (08:36→18:20)
[2017-05-25] MEDS: PARoxetine HCL 20 MG TAB PO SCH (08:37)
[2017-05-25] MEDS: SODIUM CHLORIDE 0.9% FLUSH 10 ML FLUSH IV FLUSH SCH ×2 (08:38→22:03)
[2017-05-25] MEDS: DOCUSATE SODIUM 50 MG/SENNA 8.6 MG TAB PO SCH ×2 (08:41→22:02)
[2017-05-25] MEDS: ENOXAPARIN SODIUM 30 MG/0.3 ML SYRINGE SQ SCH (10:02)
[2017-05-25] MEDS ORDERED: BEDSIDE COMMODE1 MI1 (11:51)
[2017-05-25] MEDS: LACTATED RINGER'S 1000 ML INJ 1,000 ML IV SCH (12:00)
[2017-05-25] MEDS: SODIUM CHLOR 0.9% 1000 ML INJ 1,000 ML IV SCH (14:10)
[2017-05-25] MEDS ORDERED: COLA100C PO (19:18)
--- NOTE | 2017-05-25 19:19 | HHI.DS ---
Discharge Summary Admission Date May 23, 2017 at 22:05 Discharge Date: May 25, 2017 Admitting Diagnosis Left patella fracture (1) Fall ICD Code: W19.XXXA - Unspecified fall, initial encounter (2) Fractured patella ICD Code: S82.009A - Unspecified fracture of unspecified patella, initial encounter for closed fracture Status: Acute (3) HTN (hypertension) ICD Code: I10 - Essential (primary) hypertension (4) COPD (chronic obstructive pulmonary disease) ICD Code: J44.9 - Chronic obstructive pulmonary disease, unspecified (5) Tobacco abuse ICD Code: Z72.0 - Tobacco use (6) DM (diabetes mellitus) ICD Code: E11.9 - Type 2 diabetes mellitus without complications Procedures Left patellar fracture s/p ORIF left patella by Dr Lorin jacob on 05/24/17 Brief History - From Admission This is a 62-year-old female with a PMH of HTN, DM, COPD and Tobacco Abuse who was brought to the ER w/ complaints of left knee pain following fall. States she had mechanical trip and fall while walking out of the door, denies head trauma or LOC. Reports immediate complaints of left knee pain, unable to bare weight. On arrival, BP 3/84, HR 106, O2 sat 96% on RA, Afebrile. CBC unremarkable. Chemistry unremarkable. INR 1.0. CXR with no acute findings. Left Knee X-ray with fracture patella. Ortho consulted by ER physician. CBC/BMP: 05/25/17 0633 05/24/17 0310 Significant Findings Laboratory Tests Test 05/23/17 19:50 05/24/17 03:10 05/25/17 06:33 Lymphocytes (%) (Auto) 44.6 % (9.0-44.0) Activated Partial Thromboplast Time 24.2 SEC (24.3-30.1) Random Glucose 141 MG/DL (74-106) 126 MG/DL (74-106) Calcium Level 8.4 MG/DL (8.5-10.1) 8.3 MG/DL (8.5-10.1) Albumin 3.3 GM/DL (3.4-5.0) Aspartate Amino Transf (AST/SGOT) 14 U/L (15-37) Chloride Level 108 MEQ/L (98-107) Imaging Last Impressions Knee X-Ray 05/24/17 0000 Signed Impressions: Service Date/Time: April 09:29 - CONCLUSION: Good position and alignment on this postoperative study. Omar Beasley MD Chest X-Ray 05/23/17 1929 Signed Impressions: Service Date/Time: Tuesday, May 23, 2017 19:52 - CONCLUSION: No acute disease Luis Alberto Marrero MD PE at Discharge GENERAL: Middle-aged female in no acute distress. CARDIOVASCULAR: Regular rate and rhythm. No obvious murmurs to auscultation. No chest tenderness to palpation. RESPIRATORY: No obvious rhonchi or wheezing. Clear to auscultation. Breath sounds equal bilaterally. GASTROINTESTINAL: Abdomen soft, non-tender, nondistended. BS normal. MUSCULOSKELETAL: Extremities without clubbing, cyanosis, or edema. No obvious deformities. Decreased ROM of LLE due to injury, s/p surgery. NEUROLOGICAL: Awake, alert and oriented x4. No focal neurologic deficits. Moving both upper and lower extremities spontaneously. Hospital Course Fall: s/p mechanical trip and fall, denies head trauma or LOC, no other injuries reported. Left patellar fracture s/p ORIF left patella by Dr Padgett ortho on 05/24/17 X-ray w/ fracture patella with dominant proximal distal fragments significantly distracted, images reviewed. Ortho consulted by ER physician, s/p surgical intervention. Continue management per ortho HTN: BP 150's on arrival, resume home medications, monitor BP. PRN antihypertensive meds. COPD: Chronic Respiratory Failure. Stable. DuoNeb prn. CXR w/ no acute findings, images reviewed by me. Tobacco Abuse: Pt counselled. NicoDerm prn if needed. DVT Prophylaxis: Anticoagulation post op CM for d/c planning as needed. Discussed with the patient, nurse Pt Condition on Discharge: Stable Discharge Disposition: Disch w/ Home Health Serv Discharge Time: > 30 minutes Discharge Instructions DIET: Follow Instructions for: Heart Healthy Diet, Diabetic Diet Activities you can perform: Regular-No Restrictions Follow up Referrals: Orthopedics - 2 Weeks @ [facility] with Bonifacio Padgett MD New Medications: Bedside Commode (Bedside Commode) 1 Mis Mis EA .ROUTE DIRECTED, #1 Docusate Sodium (Colace) 100 Mg Capsule 100 MG PO BID for Constipation, #60 TAB Hydrocodone-Acetaminophen (Hydrocodone-Acetaminophen) 7.5-325 mg Tab 1 TAB PO Q4H PRN for PAIN, #40 TAB 0 Refills Walker/Adult/Folding (Walker/Adult/Folding) 1 Mis Mis EA .ROUTE DIRECTED, #1 0 Refills Continued Medications: Amlodipine (Amlodipine) 5 Mg Tab 5 MG PO DAILY for Blood Pressure Management, #30 TAB 0 Refills Donepezil (Donepezil) 10 Mg Tab 10 MG PO HS for Dementia, #30 TAB 0 Refills Enalapril (Vasotec) 10 Mg Tab 10 MG PO BID, #60 TAB 0 Refills Gabapentin (Gabapentin) 300 Mg Cap 300 MG PO BID, #60 CAP 0 Refills Haloperidol (Haloperidol) 5 Mg Tab 5 MG PO TID, TAB 0 Refills Hydrocodone-Acetaminophen (Lortab) 5-325 Mg Tab 1 TAB PO Q4H PRN for PAIN, TAB 0 Refills Metformin (Metformin) 500 Mg Tab 500 MG PO BIDPC for Blood Sugar Management, #60 TAB 0 Refills Paroxetine (Paxil) 40 Mg Tab 60 MG PO DAILY, #30 TAB 0 Refills Paroxetine (Paxil) 30 Mg Tab 60 MG PO DAILY, #30 TAB 0 Refills Simvastatin (Simvastatin) 40 Mg Tab 40 MG PO HS for Cholesterol Management, #30 TAB 0 Refills Trazodone (Trazodone) 300 Mg Tab 300 MG PO HS for Control Depression, #30 TAB 0 Refills Parvin Bowie MD May 25, 2017 19:19
[2017-05-25] MEDS: PRAVASTATIN SOD 40 MG TAB PO SCH (22:02)
[2017-05-25] MEDS: DONEPEZIL HCL 5 MG TAB PO SCH (22:02)
[2017-05-25] MEDS: traZODone HCL 100 MG TAB PO SCH (22:03)
[2017-05-26] MEDS: SODIUM CHLOR 0.9% 1000 ML INJ 1,000 ML IV SCH ×2 (00:10→10:10)
[2017-05-26] MEDS: LACTATED RINGER'S 1000 ML INJ 1,000 ML IV SCH ×2 (00:30→12:10)
--- NOTE | 2017-05-26 06:58 | PD.ORT.PN ---
Subjective Subjective Remarks POD 2 s/p ORIF left patella doing well. reports pain last night but currently resting comfortably Objective Vitals Vital Signs Date Time Temp Pulse Resp B/P (MAP) Pulse Ox O2 Delivery O2 Flow Rate FiO2 05/25/17 23:20 98.9 89 18 125/74 (91) 92 05/25/17 19:49 99.2 97 19 145/71 (95) 94 05/25/17 18:23 92 Nasal Cannula 2.00 05/25/17 15:21 98.1 91 19 121/78 (92) 92 05/25/17 13:57 95 Nasal Cannula 2.00 05/25/17 11:41 97.5 107 19 103/62 (76) 95 05/25/17 07:43 99.0 95 19 112/67 (82) 91 I/O 05/25/17 05/25/17 05/25/17 05/26/17 05/26/17 05/26/17 07:00 15:00 23:00 07:00 15:00 23:00 Intake Total 890 ml 480 ml 240 ml Balance 890 ml 480 ml 240 ml Intake Oral 840 ml 480 ml 240 ml IV Total 50 ml # Voids 4 4 2 # Bowel Movements 1 1 0 Result Diagram: 05/25/17 0633 05/24/17 0310 Imaging Last 24 hours Impressions Chest X-Ray 05/23/[id number] Signed Impressions: Service Date/Time: Tuesday, May 23, 2017 19:52 - CONCLUSION: No acute disease Luis Alberto Marrero MD Knee X-Ray 05/23/171920 Signed Impressions: Service Date/Time: Tuesday, May 23, 2017 19:57 - CONCLUSION: Fractured patella with dominant proximal and distal fragments significantly distracted as above Luis Alberto Marrero MD Objective Remarks LLE: dressings clean and dry. intact. NVI. +knee brace Assessment & Plan Assessment and Plan 1) Left Patella Fx s/p ORIF - POD 2 -PWB up to 50lbs with knee brace on -knee brace at all times -no quad sets, leg lifts, strengthening, or motion of knee -daily dressing changes -CM for [facility] -patient states feels good and using walker well. reports has help at home. plan for home with HHC today -f/u with Lorin or PA in 2 weeks Earl Madison May 26, 2017 06:58
[2017-05-26 08:08] VITALS: BP 144/81; PULSE 95; RESP 18; TEMP 97.9; O2SAT 96
[2017-05-26] MEDS: GABAPENTIN 300 MG CAP PO SCH (08:20)
[2017-05-26] MEDS: ENOXAPARIN SODIUM 30 MG/0.3 ML SYRINGE SQ SCH (08:20)
[2017-05-26] MEDS: DOCUSATE SODIUM 50 MG/SENNA 8.6 MG TAB PO SCH (08:20)
[2017-05-26] MEDS: HALOPERIDOL 5 MG TAB PO SCH ×2 (08:22→12:54)
[2017-05-26] MEDS: SODIUM CHLORIDE 0.9% FLUSH 10 ML FLUSH IV FLUSH SCH (08:22)
[2017-05-26] MEDS: CALCIUM/VITAMIN D 250 MG/125 U TAB PO SCH ×2 (08:22→12:54)
[2017-05-26] MEDS: ACETAMINOPHEN/HYDROcodone 325 MG/7.5 MG TAB PO PRN ×2 (08:22→13:39)
[2017-05-26] MEDS: ENALAPRIL MALEATE 10 MG TAB PO SCH (08:23)
[2017-05-26] MEDS: PARoxetine HCL 20 MG TAB PO SCH (08:23)
[2017-05-26] MEDS: amLODIPine BESYLATE 5 MG TAB PO SCH (08:23)
[2017-05-26] MEDS: INSULIN ASPART SUPPLEMENTAL SCALE SQ SCH ×2 (08:50→11:56)
--- NOTE | 2017-05-26 10:18 | HHI.DS ---
Discharge Summary Admission Date May 23, 2017 at 22:05 Discharge Date: May 26, 2017 Admitting Diagnosis Left patella fracture (1) Fall ICD Code: W19.XXXA - Unspecified fall, initial encounter Diagnosis: Principal (2) Fractured patella ICD Code: S82.009A - Unspecified fracture of unspecified patella, initial encounter for closed fracture Diagnosis: Principal Status: Acute (3) HTN (hypertension) ICD Code: I10 - Essential (primary) hypertension Diagnosis: Secondary (4) COPD (chronic obstructive pulmonary disease) ICD Code: J44.9 - Chronic obstructive pulmonary disease, unspecified Diagnosis: Secondary (5) Tobacco abuse ICD Code: Z72.0 - Tobacco use Diagnosis: Secondary (6) DM (diabetes mellitus) ICD Code: E11.9 - Type 2 diabetes mellitus without complications Diagnosis: Secondary Procedures Left patellar fracture s/p ORIF left patella by Dr Lorin jacob on 05/24/17 Brief History - From Admission This is a 62-year-old female with a PMH of HTN, DM, COPD and Tobacco Abuse who was brought to the ER w/ complaints of left knee pain following fall. States she had mechanical trip and fall while walking out of the door, denies head trauma or LOC. Reports immediate complaints of left knee pain, unable to bare weight. On arrival, BP 3/84, HR 106, O2 sat 96% on RA, Afebrile. CBC unremarkable. Chemistry unremarkable. INR 1.0. CXR with no acute findings. Left Knee X-ray with fracture patella. Ortho consulted by ER physician. CBC/BMP: 05/25/17 0633 05/24/17 0310 Significant Findings Laboratory Tests Test 05/23/17 19:50 05/24/17 03:10 05/25/17 06:33 Lymphocytes (%) (Auto) 44.6 % (9.0-44.0) Activated Partial Thromboplast Time 24.2 SEC (24.3-30.1) Random Glucose 141 MG/DL (74-106) 126 MG/DL (74-106) Calcium Level 8.4 MG/DL (8.5-10.1) 8.3 MG/DL (8.5-10.1) Albumin 3.3 GM/DL (3.4-5.0) Aspartate Amino Transf (AST/SGOT) 14 U/L (15-37) Chloride Level 108 MEQ/L (98-107) Imaging Last Impressions Knee X-Ray 05/24/17 0000 Signed Impressions: Service Date/Time: April 09:29 - CONCLUSION: Good position and alignment on this postoperative study. Omar Beasley MD Chest X-Ray 05/23/17 1929 Signed Impressions: Service Date/Time: Tuesday, May 23, 2017 19:52 - CONCLUSION: No acute disease Luis Alberto Marrero MD PE at Discharge GENERAL: Middle-aged female in no acute distress. CARDIOVASCULAR: Regular rate and rhythm. No obvious murmurs to auscultation. No chest tenderness to palpation. RESPIRATORY: No obvious rhonchi or wheezing. Clear to auscultation. Breath sounds equal bilaterally. GASTROINTESTINAL: Abdomen soft, non-tender, nondistended. BS normal. MUSCULOSKELETAL: Extremities without clubbing, cyanosis, or edema. No obvious deformities. Decreased ROM of LLE due to injury, s/p surgery. NEUROLOGICAL: Awake, alert and oriented x4. No focal neurologic deficits. Moving both upper and lower extremities spontaneously. Hospital Course 62 yo F s/p mechanical trip and fall, denies head trauma or LOC, no other injuries reported. Left patellar fracture s/p ORIF left patella by Dr Padgett ortho on 05/24/17 Continue post operative management with physical therapy, wound care, pain management with Lortab and DVT prophylaxis. HTN: BP 150's on arrival, resume home medications, monitor BP. PRN antihypertensive meds. Improving COPD: Chronic Respiratory Failure. Stable. DuoNeb prn. CXR w/ no acute findings, images reviewed by me. Tobacco Abuse: Pt counselled. NicoDerm prn if needed. DVT Prophylaxis: Anticoagulation post op with Lovenox. Orthopedic does not recommend chemical anticoagulation after discharge Pt Condition on Discharge: Stable Discharge Disposition: Disch w/ Home Health Serv Discharge Time: > 30 minutes Discharge Instructions DIET: Follow Instructions for: Heart Healthy Diet, Diabetic Diet Activities you can perform: Regular-No Restrictions Other Activity Instructions: Partial weightbearing up to 50 pounds left lower extremity Follow up Referrals: Orthopedics - 2 Weeks @ [facility] with Bonifacio Padgett MD PCP Follow-up - 2-3 Days New Medications: Bedside Commode (Bedside Commode) 1 Mis Mis EA .ROUTE DIRECTED, #1 Docusate Sodium (Colace) 100 Mg Capsule 100 MG PO BID for Constipation, #60 TAB Hydrocodone-Acetaminophen (Hydrocodone-Acetaminophen) 7.5-325 mg Tab 1 TAB PO Q4H PRN for PAIN, #40 TAB 0 Refills Walker/Adult/Folding (Walker/Adult/Folding) 1 Mis Mis EA .ROUTE DIRECTED, #1 0 Refills Continued Medications: Amlodipine (Amlodipine) 5 Mg Tab 5 MG PO DAILY for Blood Pressure Management, #30 TAB 0 Refills Donepezil (Donepezil) 10 Mg Tab 10 MG PO HS for Dementia, #30 TAB 0 Refills Enalapril (Vasotec) 10 Mg Tab 10 MG PO BID, #60 TAB 0 Refills Gabapentin (Gabapentin) 300 Mg Cap 300 MG PO BID, #60 CAP 0 Refills Haloperidol (Haloperidol) 5 Mg Tab 5 MG PO TID, TAB 0 Refills Metformin (Metformin) 500 Mg Tab 500 MG PO BIDPC for Blood Sugar Management, #60 TAB 0 Refills Paroxetine (Paxil) 30 Mg Tab 60 MG PO DAILY, #30 TAB 0 Refills Simvastatin (Simvastatin) 40 Mg Tab 40 MG PO HS for Cholesterol Management, #30 TAB 0 Refills Trazodone (Trazodone) 300 Mg Tab 300 MG PO HS for Control Depression, #30 TAB 0 Refills Discontinued Medications: Hydrocodone-Acetaminophen (Lortab) 5-325 Mg Tab 1 TAB PO Q4H PRN for PAIN, TAB 0 Refills Paroxetine (Paxil) 40 Mg Tab 60 MG PO DAILY, #30 TAB 0 Refills Indio Hanley MD May 26, 2017 10:18
== END 2017-05-26 14:06 | disposition home health service (06) | DRG 516 ==
LOC: NEPD 18:57 → NEDA 22:05 → N06B 22:55
PROVIDERS: ADMIT Internal Medicine; ATTEND Internal Medicine
PROC: 0QSF04Z Reposition Left Patella with Internal Fixation Device, Open Approach (ICD-10-PCS; principal; 2017-05-24 08:35)
DX: S82.032A Displaced transverse fracture of left patella, initial encounter for closed fracture (principal); J96.10 Chronic respiratory failure, unspecified whether with hypoxia or hypercapnia; I10 Essential (primary) hypertension; F32.9 Major depressive disorder, single episode, unspecified; F17.210 Nicotine dependence, cigarettes, uncomplicated; W01.0XXA Fall on same level from slipping, tripping and stumbling without subsequent striking against object, initial encounter; Y93.01 Activity, walking, marching and hiking; M06.9 Rheumatoid arthritis, unspecified; E11.9 Type 2 diabetes mellitus without complications; I25.10 Atherosclerotic heart disease of native coronary artery without angina pectoris; J44.9 Chronic obstructive pulmonary disease, unspecified; E78.00 Pure hypercholesterolemia, unspecified; M19.90 Unspecified osteoarthritis, unspecified site; Z79.84 Long term (current) use of oral hypoglycemic drugs
CPT/HCPCS: 71010; 73560; 73564; 76000; 80048; 80053; 82948; 85014; 85018; 85025; 85610; 85730; 86850; 86900; 86901; 93005; 94150; 96374; E0113; J0131; J0690; J1580; J1650; J1815; J2270; J3370; J7030; J7050; J7120; L1830

== ENCOUNTER 2017-08-19 19:21 | Emergency (ER) | payer MEDICARE, OTHER ==
[~2017-08-19] VITALS: Ht 157.5 cm; Wt 63.0 kg
[~2017-08-19 19:21] MED LIST changes: -ARIC10TA PO; +BEDSIDE COMMODE1 MI1; +COLA100C5 PO; +DONE10TA7 PO; -HYDR-3533 PO; +HYDR-3580 PO; +METF500T PO; +PAXI30TA7 PO; -PAXI40TA PO; +WALKER/ADULT/FO1 MIS
[2017-08-19 19:23] VITALS: BP 143/73; PULSE 102; RESP 16; TEMP 98; O2SAT 98
[2017-08-19] MEDS ORDERED: KETOROLAC TROMETHAMINE 30 MG/ML (IVP) VIAL IV PUSH ONE (20:30)
[2017-08-19 20:52] LABS: AUTOMATED NEUTROPHIL # 3.5 TH/MM3 (1.8-7.7); BASOPHIL % 0.6 % (0.0-2.0); EOSINOPHIL # 0.2 TH/MM3 (0-0.4); EOSINOPHIL % 2.4 % (0.0-4.0); HEMATOCRIT 41.1 % (35.0-46.0); HEMOGLOBIN 13.6 GM/DL (11.6-15.3); LYMPH % 45.9 % (9.0-44.0); LYMPHOCYTE # 3.6 TH/MM3 (1.0-4.8); MEAN CELL VOLUME 88.1 FL (80.0-100.0); MEAN CORPUSCULAR HEMOGLOBIN 29.2 PG (27.0-34.0); MEAN CORPUSCULAR HGB CONC 33.1 % (32.0-36.0); MEAN PLATELET VOLUME 8.9 FL (7.0-11.0); MONOCYTE # 0.5 TH/MM3 (0-0.9); NEUT % 45.1 % (16.0-70.0); PLATELET COUNT 206 TH/MM3 (150-450); RED BLOOD COUNT 4.66 MIL/MM3 (4.00-5.30); RED CELL DISTRIBUTION WIDTH 13.5 % (11.6-17.2); WHITE BLOOD COUNT 7.9 TH/MM3 (4.0-11.0)
--- NOTE | 2017-08-19 21:02 | RADRPT ---
EXAM DATE/TIME: 08/19/2017 20:45 [place] COMPARISON: KNEE LEFT COMPLETE (4VWS), May 23, 2017, 19:57. INDICATIONS : Left knee pain MEDICAL HISTORY : None. SURGICAL HISTORY : Left Patella Pinning ENCOUNTER: Initial ACUITY: 1 day PAIN SCORE: 7/10 LOCATION: Left knee FINDINGS: Four view examination of the left knee demonstrates soft tissue swelling. Mild osteoarthritis. Small joint effusion and soft tissue swelling anteriorly. Screws and cerclage wires fixate the patellar fra cture as seen on previous study. CONCLUSION: 1. Previous internal fixation of patellar fracture still evident. 2. Soft tissue swelling and small joint effusion. Manfred Victor MD on August 19, 2017 at 20:59 Board Certified Radiologist. This report was verified electronically.
[2017-08-19 21:06] LABS: ALBUMIN 3.6 GM/DL (3.4-5.0); AST (GOT) 15 U/L (15-37); BICARBONATE 28.7 MEQ/L (21.0-32.0); BLOOD UREA NITROGEN 8 MG/DL (7-18); CALCIUM 8.5 MG/DL (8.5-10.1); CHLORIDE 106 MEQ/L (98-107); CREATININE 0.77 MG/DL (0.50-1.00); GLOMERULAR FILTRATION RATE 92 ML/MIN (>89); GLUCOSE,RANDOM 148 MG/DL (74-106); SODIUM (NA) 140 MEQ/L (136-145)
[2017-08-19 21:08] LABS: ALT (GPT) 23 U/L (10-53)
[2017-08-19 21:09] LABS: ALKALINE PHOSPHATASE 87 U/L (45-117); TOTAL BILIRUBIN ADULT 0.4 MG/DL (0.2-1.0); TOTAL PROTEIN 6.9 GM/DL (6.4-8.2)
[2017-08-19 21:29] VITALS: BP 140/65; PULSE 88; RESP 16; O2SAT 96
--- NOTE | 2017-08-19 22:11 | PD ---
HPI Chief Complaint: Wound/Suture/Staple Re-Check Time Seen by Provider: 19:59 Travel History International Travel<30 days: No Contact w/Intl Traveler<30days: No Traveled to known affect area: No History of Present Illness HPI Patient is a 62-year-old female comes in complaining of left knee pain. She says it started today while she was walking [place] [employer]. She does say she has been walking more the past 2 days. She has history of a patellar fracture in April that she had surgically repaired. She says it has been hurting her, but today is worse. She denies any new injury. She denies fever or chills. She has tried taking Advil at home with minimal relief. She says she has had decreased movement of the knee due to pain. PFSH Past Medical History Depression: Yes Cancer: No Cardiovascular Problems: Yes High Cholesterol: Yes COPD: Yes Coronary Artery Disease: Yes Diabetes: Yes (DM II) Patient Takes Glucophage: No Diminished Hearing: No Endocrine: No Glaucoma: No Genitourinary: No Hepatitis: No Hiatal Hernia: No Hypertension: Yes Immune Disorder: No Medical other: Yes (ARTHRITIS) Musculoskeletal: Yes (RHUMATOID ARTHRITIS) Neurologic: No Psychiatric: Yes Reproductive: No Respiratory: No Immunizations Current: No Thyroid Disease: No Menopausal: Yes Ectopic : Yes Past Surgical History Abdominal Surgery: No Body Medical Devices: PAIN STIMULATOR Cardiac Surgery: No Ear Surgery: No Endocrine Surgery: No Eye Surgery: No Genitourinary Surgery: No Gynecologic Surgery: Yes (TUBAL LIGATION/PARTIAL HYSTERECTOMY) Hysterectomy: Yes (PARTIAL) Oral Surgery: No Pacemaker: No Thoracic Surgery: No Other Surgery: Yes (IMPLANTED STIMULATOR) Social History Alcohol Use: No Tobacco Use: Yes (1/2 PPD) Substance Use: No Allergies-Medications (Allergen,Severity, Reaction): Coded Allergies: No Known Allergies (Verified , 05/23/17) Reported Meds & Prescriptions Reported Meds & Active Scripts Active Colace (Docusate Sodium) 100 Mg Capsule 100 Mg PO BID Bedside Commode (Device) 1 Mis Mis Ea .ROUTE DIRECTED Hydrocodone-Acetaminophen 7.5-325 mg Tab 1 Tab PO Q4H PRN Walker/Adult/Folding (Device) 1 Mis Mis Ea .ROUTE DIRECTED Reported Metformin (Metformin HCl) 500 Mg Tab 500 Mg PO BIDPC Paxil (Paroxetine HCl) 30 Mg Tab 60 Mg PO DAILY Donepezil 10 Mg Tab 10 Mg PO HS Simvastatin 40 Mg Tab 40 Mg PO HS Trazodone (Trazodone HCl) 300 Mg Tab 300 Mg PO HS Haloperidol 5 Mg Tab 5 Mg PO TID Gabapentin 300 Mg Cap 300 Mg PO BID Vasotec (Enalapril Maleate) 10 Mg Tab 10 Mg PO BID Amlodipine (Amlodipine Besylate) 5 Mg Tab 5 Mg PO DAILY Review of Systems Except as stated in HPI: all other systems reviewed are Neg General / Constitutional: No: Fever, Chills HENT: No: Headaches, Lightheadedness Cardiovascular: No: Chest Pain or Discomfort Respiratory: No: Shortness of Breath Gastrointestinal: No: Nausea, Vomiting Musculoskeletal: Positive: Arthralgias, Limited ROM Skin: No Rash, No Change in Pigmentation Neurologic: No: Weakness, Dizziness Physical Exam Narrative GENERAL: Awake and alert, in no acute distress. SKIN: Focused skin assessment warm/dry. No wounds or signs of infection. HEAD: Atraumatic. Normocephalic. EYES: Pupils equal and round. No scleral icterus. ENT: Mucous membranes pink and moist. NECK: Trachea midline. No JVD. CARDIOVASCULAR: Regular rate and rhythm. No murmur appreciated. RESPIRATORY: No accessory muscle use. Clear to auscultation. Breath sounds equal bilaterally. GASTROINTESTINAL: Abdomen soft, non-tender, nondistended. MUSCULOSKELETAL: No obvious deformities. No clubbing. No cyanosis. Mild swelling of the left knee. No erythema or wounds. Able to flex the knee, but with some pain. NEUROLOGICAL: Awake and alert. No obvious cranial nerve deficits. Motor grossly within normal limits. Normal speech. PSYCHIATRIC: Appropriate mood and affect; insight and judgment normal. Data Data Last Documented VS Vital Signs Date Time Temp Pulse Resp B/P (MAP) Pulse Ox O2 Delivery O2 Flow Rate FiO2 08/19/17 21:29 88 16 140/65 (90) 96 Room Air 08/19/17 19:23 98.0 Orders Orders Iv Access Insert/Monitor (08/19/17 20:24) Complete Blood Count With Diff (08/19/17 20:24) Comprehensive Metabolic Panel (08/19/17 20:24) Westergren Sedimentation Rate (08/19/17 20:24) Knee, Complete (4vws) (08/19/17 ) Ketorolac Inj (Toradol Inj) (08/19/17 20:30) Labs Laboratory Tests Test 08/19/17 20:30 White Blood Count 7.9 TH/MM3 Red Blood Count 4.66 MIL/MM3 Hemoglobin 13.6 GM/DL Hematocrit 41.1 % Mean Corpuscular Volume 88.1 FL Mean Corpuscular Hemoglobin 29.2 PG Mean Corpuscular Hemoglobin Concent 33.1 % Red Cell Distribution Width 13.5 % Platelet Count 206 TH/MM3 Mean Platelet Volume 8.9 FL Neutrophils (%) (Auto) 45.1 % Lymphocytes (%) (Auto) 45.9 % Monocytes (%) (Auto) 6.0 % Eosinophils (%) (Auto) 2.4 % Basophils (%) (Auto) 0.6 % Neutrophils # (Auto) 3.5 TH/MM3 Lymphocytes # (Auto) 3.6 TH/MM3 Monocytes # (Auto) 0.5 TH/MM3 Eosinophils # (Auto) 0.2 TH/MM3 Basophils # (Auto) 0.0 TH/MM3 CBC Comment DIFF FINAL Differential Comment Erythrocyte Sedimentation Rate 11 mm/hr Blood Urea Nitrogen 8 MG/DL Creatinine 0.77 MG/DL Random Glucose 148 MG/DL Total Protein 6.9 GM/DL Albumin 3.6 GM/DL Calcium Level 8.5 MG/DL Alkaline Phosphatase 87 U/L Aspartate Amino Transf (AST/SGOT) 15 U/L Alanine Aminotransferase (ALT/SGPT) 23 U/L Total Bilirubin 0.4 MG/DL Sodium Level 140 MEQ/L Potassium Level 3.5 MEQ/L Chloride Level 106 MEQ/L Carbon Dioxide Level 28.7 MEQ/L Anion Gap 5 MEQ/L Estimat Glomerular Filtration Rate 92 ML/MIN [facility] Medical Decision Making Medical Screen Exam Complete: Yes Emergency Medical Condition: Yes Medical Record Reviewed: Yes Differential Diagnosis arthritis vs knee injury vs infection Narrative Course Patient is a 62 year old male who comes in complaining of pain to her left knee. Exam shows swelling, no signs of infection. IV established, labs sent. WBC count is within normal limits. ESR is 11. XR of the knee shows arthritis. she was given Toradol with improvement of her pain. She is advised to continue tylenol or ibuprofen as needed for pain. Advised to follow up with her doctor. Advised to return as needed for any worsening symptoms. Last 24 hours Impressions Knee X-Ray 08/19/17 0000 Signed Impressions: Service Date/Time: Saturday, August 19, 2017 20:45 - CONCLUSION: 1. Previous internal fixation of patellar fracture still evident. 2. Soft tissue swelling and small joint effusion. Manfred Victor MD Diagnosis Primary Impression: Knee pain, left Qualified Codes: M25.562 - Pain in left knee Patient Instructions: General Instructions, Knee Pain (ED) Additional Instructions: Follow up with your orthopedic surgeon. Take Tylenol or Ibuprofen as needed for pain. Return to the ED as needed for any worsening symptoms. Disposition: 01 DISCHARGE HOME Condition: Stable Fay Crockett MD Aug 19, 2017 22:11
== END 2017-08-19 22:20 | disposition home or self-care (01) ==
LOC: NEPD 19:21
DX: M17.12 Unilateral primary osteoarthritis, left knee (principal); F32.9 Major depressive disorder, single episode, unspecified; E78.00 Pure hypercholesterolemia, unspecified; J44.9 Chronic obstructive pulmonary disease, unspecified; I25.10 Atherosclerotic heart disease of native coronary artery without angina pectoris; E11.9 Type 2 diabetes mellitus without complications; I10 Essential (primary) hypertension; M06.9 Rheumatoid arthritis, unspecified; F17.200 Nicotine dependence, unspecified, uncomplicated
CPT/HCPCS: 73564; 80053; 85025; 85652; 96374; 99284; J1885

== ENCOUNTER 2017-09-09 11:12 | Emergency (ER) | payer MEDICARE, OTHER ==
[~2017-09-09] VITALS: Ht 162.6 cm; Wt 63.5 kg
[2017-09-09 11:13] VITALS: BP 151/83; PULSE 94; RESP 13; TEMP 98.3; O2SAT 100
[2017-09-09] MEDS ORDERED: DIAZEPAM 5 MG TAB PO ONE (11:30)
[2017-09-09] MEDS ORDERED: SODIUM CHLORID 0.9% 500 ML INJ 500 ML IV ONE (11:30)
[2017-09-09] MEDS ORDERED: MORPHINE SULFATE 2 MG/ML INJ IV PUSH ONE (11:30)
[2017-09-09] MEDS ORDERED: KETOROLAC TROMETHAMINE 30 MG/ML (IVP) VIAL IV PUSH ONE (11:30)
[2017-09-09 11:31] VITALS: BP 141/80; PULSE 88; RESP 17; O2SAT 96
--- NOTE | 2017-09-09 11:42 | PD ---
HPI Chief Complaint: Musculoskeletal Complaint Time Seen by Provider: 11:24 Travel History International Travel<30 days: No Contact w/Intl Traveler<30days: No Traveled to known affect area: No History of Present Illness HPI The patient is a 62-year-old after [place] female who presents emergency department for left lower extremity pain and spasms. The patient has a history of left patella fracture with subsequent surgery by Dr. Padgett in April 2017. Approximately one month ago the patient started having spasms in the posterior aspect of the leg with pain in the popliteal fossa. The patient was seen by her orthopedist last week who stated she may need future surgery to remove the pins and wire. However, patient notes increasing spasms of the left leg starts in the popliteal fossa and goes down the left leg. It is intermittent, sharp, and painful. She denies any pain of the mid back, left gluteal area, or left thigh. Symptoms are moderate. No alleviating factors. She denies any fever, chills, or sweats. She denies any significant edema to left lower extremity and denies any history of DVT. PFSH Past Medical History Depression: Yes Cancer: No Cardiovascular Problems: Yes High Cholesterol: Yes COPD: Yes Coronary Artery Disease: Yes Diabetes: Yes (DM II) Patient Takes Glucophage: Yes Diminished Hearing: No Endocrine: No Glaucoma: No Genitourinary: No Hepatitis: No Hiatal Hernia: No Hypertension: Yes Immune Disorder: No Medical other: Yes (ARTHRITIS) Musculoskeletal: Yes (RHUMATOID ARTHRITIS) Neurologic: No Psychiatric: Yes Reproductive: No Respiratory: No Immunizations Current: No Thyroid Disease: No Menopausal: Yes Ectopic : Yes Past Surgical History Abdominal Surgery: No Body Medical Devices: PAIN STIMULATOR Cardiac Surgery: No Ear Surgery: No Endocrine Surgery: No Eye Surgery: No Genitourinary Surgery: No Gynecologic Surgery: Yes (TUBAL LIGATION/PARTIAL HYSTERECTOMY) Hysterectomy: Yes (PARTIAL) Oral Surgery: No Pacemaker: No Thoracic Surgery: No Other Surgery: Yes (IMPLANTED STIMULATOR) Social History Alcohol Use: Yes Tobacco Use: Yes (/2 PPD) Substance Use: No Allergies-Medications (Allergen,Severity, Reaction): Coded Allergies: No Known Allergies (Verified Adverse Reaction, Unknown, 09/09/17) Reported Meds & Prescriptions Reported Meds & Active Scripts Active Colace (Docusate Sodium) 100 Mg Capsule 100 Mg PO BID Hydrocodone-Acetaminophen 7.5-325 mg Tab 1 Tab PO Q4H PRN Reported Metformin (Metformin HCl) 500 Mg Tab 500 Mg PO BIDPC Paxil (Paroxetine HCl) 30 Mg Tab 60 Mg PO DAILY Donepezil 10 Mg Tab 10 Mg PO HS Simvastatin 40 Mg Tab 40 Mg PO HS Trazodone (Trazodone HCl) 300 Mg Tab 300 Mg PO HS Haloperidol 5 Mg Tab 5 Mg PO TID Gabapentin 300 Mg Cap 300 Mg PO BID Vasotec (Enalapril Maleate) 10 Mg Tab 10 Mg PO BID Amlodipine (Amlodipine Besylate) 5 Mg Tab 5 Mg PO DAILY Review of Systems Except as stated in HPI: all other systems reviewed are Neg General / Constitutional: No: Fever Cardiovascular: No: Chest Pain or Discomfort Respiratory: No: Shortness of Breath Gastrointestinal: No: Nausea, Vomiting Musculoskeletal: Positive: Pain, No: Edema Skin: No Rash Neurologic: No: Paresthesia, Sensory Disturbance Physical Exam Narrative GENERAL: Awake, alert, pleasant 62-year-old female who appears her stated age and is in no acute respiratory distress. SKIN: Focused skin assessment warm/dry. HEAD: Atraumatic. Normocephalic. EYES: No injection or drainage. GASTROINTESTINAL: Abdomen soft, non-tender, nondistended. No rebound tenderness. Back: No tenderness of thoracic or lumbar vertebrae. No tenderness of the sacroiliac. No tenderness over the left gluteal area. MUSCULOSKELETAL: No obvious deformities. No clubbing. No cyanosis. No edema. Well-healed scar of the anterior aspect the left knee. The patient is able flex left hip and left knee to 60. No tenderness to left calf, mild tenderness of the left popliteal fossa. Positive dorsalis pedal pulse bilaterally. No visible fasciculations. NEUROLOGICAL: Awake and alert. No obvious cranial nerve deficits. Motor grossly within normal limits. Normal speech. PSYCHIATRIC: Appropriate mood and affect; insight and judgment normal. Data Data Last Documented VS Vital Signs Date Time Temp Pulse Resp B/P (MAP) Pulse Ox O2 Delivery O2 Flow Rate FiO2 09/09/17 11:31 88 17 141/80 (100) 96 09/09/17 11:13 98.3 Orders Orders Us Leg Venous Doppler (09/09/17 ) Complete Blood Count With Diff (09/09/17 11:30) Basic Metabolic Panel (Bmp) (09/09/17 11:30) Sodium Chlorid 0.9% 500 Ml Inj (Ns 500 M (09/09/17 11:30) Morphine Inj (Morphine Inj) (09/09/17 11:30) Diazepam (Valium) (09/09/17 11:30) Ketorolac Inj (Toradol Inj) (09/09/17 11:30) Labs Laboratory Tests Test 09/09/17 11:34 White Blood Count 7.4 TH/MM3 Red Blood Count 4.73 MIL/MM3 Hemoglobin 14.0 GM/DL Hematocrit 41.3 % Mean Corpuscular Volume 87.3 FL Mean Corpuscular Hemoglobin 29.7 PG Mean Corpuscular Hemoglobin Concent 34.0 % Red Cell Distribution Width 13.9 % Platelet Count 193 TH/MM3 Mean Platelet Volume 8.5 FL Neutrophils (%) (Auto) 51.7 % Lymphocytes (%) (Auto) 39.0 % Monocytes (%) (Auto) 7.8 % Eosinophils (%) (Auto) 1.0 % Basophils (%) (Auto) 0.5 % Neutrophils # (Auto) 3.9 TH/MM3 Lymphocytes # (Auto) 2.9 TH/MM3 Monocytes # (Auto) 0.6 TH/MM3 Eosinophils # (Auto) 0.1 TH/MM3 Basophils # (Auto) 0.0 TH/MM3 CBC Comment DIFF FINAL Differential Comment Blood Urea Nitrogen 6 MG/DL Creatinine 0.57 MG/DL Random Glucose 94 MG/DL Calcium Level 8.6 MG/DL Sodium Level 139 MEQ/L Potassium Level 4.1 MEQ/L Chloride Level 106 MEQ/L Carbon Dioxide Level 26.3 MEQ/L Anion Gap 7 MEQ/L Estimat Glomerular Filtration Rate 130 ML/MIN MDM Medical Decision Making Medical Screen Exam Complete: Yes Emergency Medical Condition: Yes Medical Record Reviewed: Yes Interpretation(s) Last Impressions Lower Extremity Ultrasound 09/09/17 0000 Signed Impressions: Service Date/Time: Saturday, September 09, 2017 11:56 - CONCLUSION: Normal examination. No evidence of DVT Campbell Goddard MD Laboratory Tests Test 09/09/17 11:34 White Blood Count 7.4 TH/MM3 Red Blood Count 4.73 MIL/MM3 Hemoglobin 14.0 GM/DL Hematocrit 41.3 % Mean Corpuscular Volume 87.3 FL Mean Corpuscular Hemoglobin 29.7 PG Mean Corpuscular Hemoglobin Concent 34.0 % Red Cell Distribution Width 13.9 % Platelet Count 193 TH/MM3 Mean Platelet Volume 8.5 FL Neutrophils (%) (Auto) 51.7 % Lymphocytes (%) (Auto) 39.0 % Monocytes (%) (Auto) 7.8 % Eosinophils (%) (Auto) 1.0 % Basophils (%) (Auto) 0.5 % Neutrophils # (Auto) 3.9 TH/MM3 Lymphocytes # (Auto) 2.9 TH/MM3 Monocytes # (Auto) 0.6 TH/MM3 Eosinophils # (Auto) 0.1 TH/MM3 Basophils # (Auto) 0.0 TH/MM3 CBC Comment DIFF FINAL Differential Comment Blood Urea Nitrogen 6 MG/DL Creatinine 0.57 MG/DL Random Glucose 94 MG/DL Calcium Level 8.6 MG/DL Sodium Level 139 MEQ/L Potassium Level 4.1 MEQ/L Chloride Level 106 MEQ/L Carbon Dioxide Level 26.3 MEQ/L Anion Gap 7 MEQ/L Estimat Glomerular Filtration Rate 130 ML/MIN Differential Diagnosis Differential diagnosis includes possible spasm, hypokalemia, hyperkalemia, DVT, PVD, PAD, Cole's cyst. Narrative Course IV was established, labs are drawn and sent, and the patient was placed on cardiac telemetry monitoring and continuous pulse oximetry monitoring. Ultrasound of the left lower extremity was obtained. The patient was administered morphine, Toradol, Zofran, and Valium. Ultrasound is negative for DVT. Laboratory evaluation is unremarkable. The patient was reevaluated at 12: 45 PM. The patient symptoms have resolved. The patient be discharged home with muscle relaxer and pain medication. She is advised to follow-up with her orthopedist. Return if symptoms worsen or progress. Diagnosis Primary Impression: Muscle spasm of left lower extremity Patient Instructions: General Instructions Additional Instructions: Please provide the patient a copy of her ultrasound results and lab results at discharge. Follow-up with your orthopedist. Medications as needed. Return if symptoms worsen or progress. Med/Other Pt SpecificInfo: Prescription(s) given Scripts Diazepam (Valium) 5 Mg Tab 5 MG PO TID Y for SPASM, #15 TAB 0 Refills Prov: Kevyn Hoskins MD 09/09/17 Hydrocodone-Acetaminophen ([place]) 5 Mg-325 Mg Tab 1 TAB PO Q6H Y for PAIN, #12 TAB 0 Refills Prov: Kevyn Hoskins MD 09/09/17 Disposition: 01 DISCHARGE HOME Condition: Stable Kevyn Hoskins MD Sep 09, 2017 11:42
[2017-09-09 11:55] LABS: AUTOMATED NEUTROPHIL # 3.9 TH/MM3 (1.8-7.7); BASOPHIL % 0.5 % (0.0-2.0); EOSINOPHIL # 0.1 TH/MM3 (0-0.4); HEMATOCRIT 41.3 % (35.0-46.0); LYMPHOCYTE # 2.9 TH/MM3 (1.0-4.8); MEAN CELL VOLUME 87.3 FL (80.0-100.0); MEAN CORPUSCULAR HEMOGLOBIN 29.7 PG (27.0-34.0); MEAN PLATELET VOLUME 8.5 FL (7.0-11.0); MONO % 7.8 % (0.0-8.0); MONOCYTE # 0.6 TH/MM3 (0-0.9); NEUT % 51.7 % (16.0-70.0); PLATELET COUNT 193 TH/MM3 (150-450); RED BLOOD COUNT 4.73 MIL/MM3 (4.00-5.30); RED CELL DISTRIBUTION WIDTH 13.9 % (11.6-17.2); WHITE BLOOD COUNT 7.4 TH/MM3 (4.0-11.0)
[2017-09-09 12:11] LABS: BICARBONATE 26.3 MEQ/L (21.0-32.0); CALCIUM 8.6 MG/DL (8.5-10.1); CREATININE 0.57 MG/DL (0.50-1.00)
--- NOTE | 2017-09-09 12:24 | RADRPT ---
EXAM DATE/TIME: 09/09/2017 11:56 [facility] COMPARISON: No previous studies available for comparison. INDICATIONS : Left leg pain. MEDICAL HISTORY : CAD. Hypertension. Hypercholesterol. COPD. Rhumatoid arthritis. Diabetic. SURGICAL HISTORY : Tubal ligation. Hysterectomy. ENCOUNTER: Initial ACUITY: 1 day PAIN SCORE: 10/10 LOCATION: Left leg. TECHNIQUE: Venous ultrasound of the leg was performed from the inguinal ligament to the proximal calf. Real-james e, color Doppler and spectral tracing, compression and augmentation techniques were used. FINDINGS: There is normal compressibility of the deep venous system from the inguinal region to the proximal ca lf. No echogenic clot is seen in the lumen of the common femoral, femoral, popliteal, and posterior tibial veins. There is a normal response of the venous system to proximal and distal augmentation an d respiration. CONCLUSION: Normal examination. No evidence of DVT Campbell Goddard MD on September 09, 2017 at 12:20 Board Certified Radiologist. This report was verified electronically.
[2017-09-09] MEDS ORDERED: DIAZ5 PO (12:48)
[2017-09-09] MEDS ORDERED: NORC5TAB PO (12:48)
== END 2017-09-09 13:25 | disposition home or self-care (01) ==
LOC: NEPC 11:12
DX: M62.838 Other muscle spasm (principal); F32.9 Major depressive disorder, single episode, unspecified; E78.00 Pure hypercholesterolemia, unspecified; J44.9 Chronic obstructive pulmonary disease, unspecified; I25.10 Atherosclerotic heart disease of native coronary artery without angina pectoris; E11.9 Type 2 diabetes mellitus without complications; I10 Essential (primary) hypertension; M06.9 Rheumatoid arthritis, unspecified; F17.200 Nicotine dependence, unspecified, uncomplicated
CPT/HCPCS: 80048; 85025; 93971; 96361; 96374; 96375; 99284; J1885; J2270; J7040

== ENCOUNTER 2017-11-20 02:52 | Emergency (ER) | payer MEDICARE, OTHER ==
[~2017-11-20 02:52] MED LIST changes: -BEDSIDE COMMODE1 MI1; +DIAZ5 PO; +NORC5TAB PO; -WALKER/ADULT/FO1 MIS
[2017-11-20 02:55] VITALS: BP 129/86; PULSE 111; RESP 16; TEMP 98.7; O2SAT 100
--- NOTE | 2017-11-20 03:10 | PD ---
HPI Chief Complaint: Musculoskeletal Complaint Time Seen by Provider: 03:03 Travel History International Travel<30 days: No Contact w/Intl Traveler<30days: No Traveled to known affect area: No History of Present Illness HPI 62-year-old female presents emergency department for evaluation of left knee pain. Patient states she had knee surgery in September by Dr. Padgett. She is undergoing physical therapy. She states that the knee is sore and has been worse over the last couple of days. Denies any new injury. Denies any fever chills. No significant edema. She has no other symptoms to report. PFSH Past Medical History Depression: Yes Cancer: No Cardiovascular Problems: Yes High Cholesterol: Yes COPD: Yes Coronary Artery Disease: Yes Diabetes: Yes Diminished Hearing: No Endocrine: No Glaucoma: No Genitourinary: No Hepatitis: No Hiatal Hernia: No Hypertension: Yes Immune Disorder: No Musculoskeletal: Yes (RHUMATOID ARTHRITIS) Neurologic: No Psychiatric: Yes Reproductive: No Respiratory: No Immunizations Current: No Thyroid Disease: No Menopausal: Yes Ectopic : Yes Past Surgical History Abdominal Surgery: No Body Medical Devices: PAIN STIMULATOR Cardiac Surgery: No Ear Surgery: No Endocrine Surgery: No Eye Surgery: No Genitourinary Surgery: No Gynecologic Surgery: Yes (TUBAL LIGATION/PARTIAL HYSTERECTOMY) Hysterectomy: Yes (PARTIAL) Oral Surgery: No Pacemaker: No Thoracic Surgery: No Other Surgery: Yes (IMPLANTED STIMULATOR) Social History Alcohol Use: Yes Tobacco Use: Yes (1/2 PPD) Substance Use: No Allergies-Medications (Allergen,Severity, Reaction): Coded Allergies: No Known Allergies (Verified Adverse Reaction, Unknown, 11/20/17) Reported Meds & Prescriptions Reported Meds & Active Scripts Active Valium (Diazepam) 5 Mg Tab 5 Mg PO TID PRN [place] (Hydrocodone-Acetaminophen) 5 Mg-325 Mg Tab 1 Tab PO Q6H PRN Colace (Docusate Sodium) 100 Mg Capsule 100 Mg PO BID Hydrocodone-Acetaminophen 7.5-325 mg Tab 1 Tab PO Q4H PRN Reported Metformin (Metformin HCl) 500 Mg Tab 500 Mg PO BIDPC Paxil (Paroxetine HCl) 30 Mg Tab 60 Mg PO DAILY Donepezil 10 Mg Tab 10 Mg PO HS Simvastatin 40 Mg Tab 40 Mg PO HS Trazodone (Trazodone HCl) 300 Mg Tab 300 Mg PO HS Haloperidol 5 Mg Tab 5 Mg PO TID Gabapentin 300 Mg Cap 300 Mg PO BID Vasotec (Enalapril Maleate) 10 Mg Tab 10 Mg PO BID Amlodipine (Amlodipine Besylate) 5 Mg Tab 5 Mg PO DAILY Review of Systems Except as stated in HPI: all other systems reviewed are Neg Physical Exam Narrative GENERAL: Well-nourished, well-developed p female patient, ambulatory with cane assistance, no acute distress. SKIN: Focused skin assessment warm/dry. HEAD: Normocephalic. EYES: No scleral icterus. No injection or drainage. NECK: Supple, trachea midline. No JVD or lymphadenopathy. CARDIOVASCULAR: Regular rate and rhythm without murmurs, gallops, or rubs. RESPIRATORY: Breath sounds equal bilaterally. No accessory muscle use. MUSCULOSKELETAL: No cyanosis, or edema. . There is a well-healed scar over the anterior left knee. No erythema. No edema. Patient does have limited flexion of the left knee secondary to surgery and not yet undergoing physical therapy. Distal pulses are palpable. Cap refills within normal limits. BACK: Nontender without obvious deformity. No CVA tenderness., Data Data Last Documented VS Vital Signs Date Time Temp Pulse Resp B/P (MAP) Pulse Ox O2 Delivery O2 Flow Rate FiO2 11/20/17 02:55 98.7 111 16 129/86 (100) 100 Orders Orders Ketorolac Inj (Toradol Inj) (11/20/17 03:15) Ed Discharge Order (11/20/17 03:10) [facility] Medical Decision Making Medical Screen Exam Complete: Yes Emergency Medical Condition: Yes Medical Record Reviewed: Yes Differential Diagnosis Postop pain versus osteoarthritis versus bursitis versus joint effusion versus less likely septic joint Narrative Course 62-year-old female presents emergency department for evaluation left knee pain. Patient appears without distress. The knee is not erythematous or edematous. I do not believe this is a septic joint. Patient is treated for pain. She does have pain control already prescribed to her. She is encouraged to follow- up with her orthopedic surgeon and return immediately with any acute worsening symptoms. Diagnosis Primary Impression: Knee pain, left Qualified Codes: M25.562 - Pain in left knee Referrals: Orthopaedic Surgeon Primary Care Physician Patient Instructions: General Instructions, Knee Pain (ED) Additional Instructions: Ice to the affected area Follow-up with your orthopedic surgeon Continue pain medication as already prescribed Return immediately with acute worsening of symptoms Med/Other Pt SpecificInfo: No Change to Meds Disposition: 01 DISCHARGE HOME Condition: Stable Shaylee Crum Nov 20, 2017 03:10
[2017-11-20] MEDS ORDERED: KETOROLAC TROMETHAMINE 60 MG/2 ML (IM) VIAL IM ONE (03:15)
== END 2017-11-20 05:24 | disposition home or self-care (01) ==
LOC: NEPD 02:52
DX: M25.562 Pain in left knee (principal); F17.200 Nicotine dependence, unspecified, uncomplicated; E11.9 Type 2 diabetes mellitus without complications; E78.00 Pure hypercholesterolemia, unspecified; I10 Essential (primary) hypertension; I25.10 Atherosclerotic heart disease of native coronary artery without angina pectoris; Z79.84 Long term (current) use of oral hypoglycemic drugs
CPT/HCPCS: 96372; 99283; J1885